=== PATIENT | female | born 1950 | race Caucasian/White ===

== ENCOUNTER → 2017-11-05 | Outpatient (CLI) | payer MEDICARE, OTHER ==
--- NOTE | 2017-11-05 14:37 | BD ---
EXAMINATION TYPE: MG DEXA axial skeleton. DATE OF EXAM: 11/05/2017 COMPARISON: NONE CLINICAL HISTORY: 67 YR OLD FEMALE: ICD-10 CODE: E55.9 UNSPEC. VITAMIN D DEFICIENCY Height: 64 Weight: 237 FRAX RISK QUESTIONS: Alcohol (3 or more units per day): NO Family History (Parent hip fracture): NO FX Glucocorticoids (More than 3mos): NO (Ex: prednisone, prednisolone, methylprednisolone, dexamethasone, and hydrocortisone). History of Fracture in Adulthood: NO Secondary Osteoporosis: NO 1. Type 1 Diabetes: NO 2. Hyperthyroidism: NO 3. Menopause before 45: NO 4. Malnutrition: NO 5. Chronic liver disease: NO Rheumatoid Arthritis: NO Current Tobacco Use: NO RISK FACTORS HISTORY OF: Family History of Osteoporosis: YES HER MOTHER, NO FX Active: YES Diet low in dairy products/other sources of calcium: NO Postmenopausal woman: 51 YRS Hyperparathyroidism: NO Adrenal Insufficiency: NO MEDICATIONS: Additional Medications: BP MEDS, VIT D Additional History: NONE TO NOTE EXAM MEASUREMENTS: Bone mineral densitometry was performed using the M_SOLUTION System. Bone mineral density as measured about the Lumbar spine is: ----- L1-L4(G/cm2): 1.244 T Score Values are as follows: ----- L1: -0.1 ----- L2: 0.0 ----- L3: 0.7 ----- L4: 1.2 ----- L1-L4: 0.5 Bone mineral density FIRST BONE DENSITY TEST WITH [facility] Bone mineral density about the R hip (g/cm2): 1.017 Bone mineral density about the L hip (g/cm2): 1.060 T Score values are as follows: -----R Neck: -1.2 -----L Neck: -1.2 -----R Total: 0.1 -----L Total: 0.4 FRAX%'S: THERE IS A 7.7% CHANCE OF A MAJOR OSTEOPOROTIC FX AND A 0.7% FOR A HIP FX....PROBABILITY OF FX IN 10 YRS TIME IMPRESSION: Osteopenia (T Score between -2.5 and -1 as noted by T score values There is slightly increased risk of fracture and the patient may be considered for treatment. Re-Screen 2-5 years. NOTE: T-SCORE=SD OF THE YOUNG ADULT MEAN.
== END | disposition home or self-care (01) ==
LOC: RADBDWWP 10:28
PROVIDERS: ATTEND Family Medicine
DX: M85.80 Other specified disorders of bone density and structure, unspecified site (principal); E55.9 Vitamin D deficiency, unspecified
CPT/HCPCS: 77080

== ENCOUNTER → 2017-11-26 | Outpatient (CLI) | payer MEDICARE, OTHER ==
--- NOTE | 2017-11-27 09:24 | MM ---
Reason for exam: screening (asymptomatic). Last mammogram was performed 1 year and 9 months ago. History: Patient is postmenopausal. Benign excisional biopsy of the right breast. Physical Findings: A clinical breast exam by your physician is recommended on an annual basis and results should be correlated with mammographic findings. MG 3D Screening Mammo W/Cad Bilateral CC and MLO view(s) were taken. Prior study comparison: February 21, 2016, bilateral MG 3d screening mammo w/cad. November 29, 2007, bilateral screening mammogram w/CAD. The breast tissue is almost entirely fat. There is no discrete abnormality. No significant changes when compared with prior studies. ASSESSMENT: Negative, BI-RAD 1 RECOMMENDATION: Routine screening mammogram of both breasts in 1 year.
== END | disposition home or self-care (01) ==
LOC: RADMAMWWP 10:17
PROVIDERS: ATTEND Family Medicine
DX: Z12.31 Encounter for screening mammogram for malignant neoplasm of breast (principal)
CPT/HCPCS: 77063; 77067

== ENCOUNTER → 2019-05-25 | Outpatient (CLI) | payer MEDICARE, OTHER ==
--- NOTE | 2019-05-26 11:58 | MM ---
Reason for exam: screening (asymptomatic). Last mammogram was performed 1 year and 6 months ago. History: Patient is postmenopausal. Benign excisional biopsy of the right breast. Physical Findings: A clinical breast exam by your physician is recommended on an annual basis and results should be correlated with mammographic findings. MG 3D Screening Mammo W/Cad Bilateral CC and MLO view(s) were taken. Prior study comparison: November 26, 2017, bilateral MG 3d screening mammo w/cad. February 21, 2016, bilateral MG 3d screening mammo w/cad. There are scattered fibroglandular densities. Benign appearing calcifications in the right breast. ASSESSMENT: Benign, BI-RAD 2 RECOMMENDATION: Routine screening mammogram of both breasts in 1 year.
== END | disposition home or self-care (01) ==
LOC: RADMAMWWP 08:10
PROVIDERS: ATTEND Family Medicine
DX: Z12.31 Encounter for screening mammogram for malignant neoplasm of breast (principal)
CPT/HCPCS: 77063; 77067

== ENCOUNTER → 2019-11-07 | Outpatient (CLI) | payer MEDICARE, OTHER ==
--- NOTE | 2019-11-07 10:57 | BD ---
EXAMINATION TYPE: Axial Bone Density DATE OF EXAM: 11/07/2019 COMPARISON: NONE CLINICAL HISTORY: Height: 64 Weight: 241.1 FRAX RISK QUESTIONS: Alcohol (3 or more units per day): no Family History (Parent hip fracture): no Glucocorticoids (More than 3mos): no (Ex: prednisone, prednisolone, methylprednisolone, dexamethasone, and hydrocortisone). History of Fracture in Adulthood: no Secondary Osteoporosis: 1. Type 1 Diabetes: no 2. Hyperthyroidism: no 3. Menopause before 45: no 4. Malnutrition: no 5. Chronic liver disease: no Rheumatoid Arthritis: no Current Tobacco Use: no RISK FACTORS HISTORY OF: Family History of Osteoporosis: yes Active: yes Diet low in dairy products/other sources of calcium: no Postmenopausal woman: age 51 MEDICATIONS: vit d, blood pressure, Additional History: EXAM MEASUREMENTS: Bone mineral densitometry was performed using the [employer]ongo System. Bone mineral density as measured about the Lumbar spine is: ----- L1-L4(G/cm2): 1.356 T Score Values are as follows: ----- L2: 1.1 ----- L3: 2.2 ----- L4: 1.3 ----- L1-L4: 1.5 Bone mineral density has: increased 8.8 % since study of: 11.05.2017 Bone mineral density about the R hip (g/cm2): 0.802 Bone mineral density about the L hip (g/cm2): 0.914 T Score values are as follows: -----R Neck: -1.7 -----L Neck: -0.9 -----R Total: -0.3 -----L Total: 0.4 Bone mineral density has: decreased -2.6 % since study of: 11.05.2017 IMPRESSION: No evidence for osteoporosis or osteopenia NOTE: T-SCORE=SD OF THE YOUNG ADULT MEAN.
== END | disposition home or self-care (01) ==
LOC: RADBDWWP 09:27
PROVIDERS: ATTEND Family Medicine
DX: M89.9 Disorder of bone, unspecified (principal)
CPT/HCPCS: 77080

== ENCOUNTER 2019-12-30 07:59 | Day surgery (SDC) | payer MEDICARE, OTHER ==
[2019-12-29 13:05] VITALS: BMI 38.7
[2019-12-30 08:32] VITALS: TEMP 98.3
[2019-12-30 09:28] VITALS: RESP 18
[2019-12-30 09:43] VITALS: BP 123/78; PULSE 67
== END 2019-12-30 10:02 | disposition home or self-care (01) ==
LOC: ORWHC2ENDO 07:59
PROVIDERS: ATTEND Internal Medicine Gastroenterology
DX: Z12.11 Encounter for screening for malignant neoplasm of colon (principal); D12.5 Benign neoplasm of sigmoid colon; K57.30 Diverticulosis of large intestine without perforation or abscess without bleeding; I10 Essential (primary) hypertension; Z88.2 Allergy status to sulfonamides; Z79.899 Other long term (current) drug therapy
CPT/HCPCS: 88305; 45385; J2704

== ENCOUNTER → 2020-05-17 | Outpatient (CLI) | payer MEDICARE, OTHER ==
[2020-05-17 10:52] LABS: Basophils % (A) 1 %; Eosinophils # (A) 0.2 k/uL (0-0.7); Eosinophils % (A) 4 %; HGB 12.1 gm/dL (11.4-16.0); Lymphocytes % (A) 16 %; MCH 28.3 pg (25.0-35.0); MCV 88.4 fL (80.0-100.0); Mean Platelet Volume 7.6; Monocytes # (A) 0.4 k/uL (0-1.0); Monocytes % (A) 7 %; Neutrophils # (A) 4.3 k/uL (1.3-7.7); Neutrophils % (A) 71 %; Platelet Count 215 k/uL (150-450); RBC 4.29 m/uL (3.80-5.40); RDW 14.7 % (11.5-15.5); WBC 6.1 k/uL (3.8-10.6)
[2020-05-17 17:02] LABS: African American GFR (CKD) 87.2 (60.0-200.0); Albumin/Globulin Ratio 1.67 (1.60-3.17); BUN/Creat Ratio 32.5 Ratio (12.00-20.00); C Reactive Protein 1.4 mg/dL (0.0-0.8); Calcium 9.3 mg/dL (8.7-10.3); Globulin 2.4 g/dL (1.6-3.3); Non-African American GFR(CKD) 75.2 (60.0-200.0); Total Bilirubin 0.8 mg/dL (0.3-1.2); Total Protein 6.4 g/dL (6.2-8.2)
[2020-05-17 17:09] LABS: Erythrocyte Sedimentation Rate 43 mm/Hr (0-30)
== END | disposition home or self-care (01) ==
LOC: LABWHC1 09:45
PROVIDERS: ATTEND Family Medicine
DX: L97.822 Non-pressure chronic ulcer of other part of left lower leg with fat layer exposed (principal)
CPT/HCPCS: 36415; 80053; 84134; 85025; 85652; 86140

== ENCOUNTER → 2020-05-23 | Outpatient (CLI) | payer MEDICARE, OTHER ==
--- NOTE | 2020-05-23 16:24 | US ---
LOWER EXTREMITY VENOUS INSUFFICIENCY CLINICAL HISTORY: L97.822 CHRONIC ULCER. Bilateral LE swelling, edema, and cellulitis. Hematoma afte r falling and landing on left leg; left anterior lower leg ulcer. Varicose veins are noted bilaterall y SIDE PERFORMED: Bilateral 1) Color flow is present and patency is documented in the following vessels. No DVT or SVT is noted . Common Femoral Vein Deep Femoral Vein Femoral Vein Popliteal Vein Proximal Calf Veins Greater Saph Vein Upper Small Saph Vein 2) There is venous reflux noted at the following venous levels: Right GSV mid and distally. Edema c hannels are noted bilateral lower extremities. Venous reflux is noted Left proximal, mid, and distal GSV 3) Incompetent perforators are not indicated. IMPRESSION: 1. Right Mid and distal Greater saphenous venous reflux. 2. Venous reflux left proximal mid to distal greater saphenous vein.
== END | disposition home or self-care (01) ==
LOC: RADUSWWP 13:39
PROVIDERS: ATTEND Family Medicine
DX: I87.2 Venous insufficiency (chronic) (peripheral) (principal); L97.822 Non-pressure chronic ulcer of other part of left lower leg with fat layer exposed; Z79.899 Other long term (current) drug therapy
CPT/HCPCS: 93922; 93970

== ENCOUNTER → 2021-09-11 | Outpatient (CLI) | payer MEDICARE, OTHER ==
[2021-09-11 15:19] LABS: Basophils % (A) 0 %; Eosinophils # (A) 0.2 k/uL (0-0.7); Eosinophils % (A) 3 %; HCT 41.6 % (34.0-46.0); Lymphocytes # (A) 1.5 k/uL (1.0-4.8); Lymphocytes % (A) 25 %; MCH 30.2 pg (25.0-35.0); MCHC 33.7 g/dL (31.0-37.0); MCV 89.7 fL (80.0-100.0); Mean Platelet Volume 8.5; Monocytes # (A) 0.3 k/uL (0-1.0); Monocytes % (A) 6 %; Neutrophils # (A) 3.8 k/uL (1.3-7.7); Neutrophils % (A) 64 %; Platelet Count 131 k/uL (150-450); RBC 4.64 m/uL (3.80-5.40); RDW 13.6 % (11.5-15.5); WBC 5.8 k/uL (3.8-10.6)
[2021-09-11 15:27] LABS: Potassium 3.8 mmol/L (3.5-5.1)
[2021-09-11 15:33] LABS: INR 0.9 (<1.2); Partial Thromboplastin Time 25.4 sec (22.0-30.0); Prothrombin Time 10.2 sec (9.0-12.0)
== END | disposition home or self-care (01) ==
LOC: LABPAT 14:09
PROVIDERS: ATTEND Orthopaedic Surgery
DX: Z01.812 Encounter for preprocedural laboratory examination (principal); M17.11 Unilateral primary osteoarthritis, right knee
CPT/HCPCS: 80051; 85025; 85610; 85730; 87070

== ENCOUNTER → 2021-09-18 | Outpatient (CLI) | payer MEDICARE, OTHER ==
--- NOTE | 2021-09-18 12:37 | NM ---
EXAMINATION TYPE: NM stress cardiolite complete DATE OF EXAM: 09/18/2021 COMPARISON: NONE HISTORY: Chest pain TECHNIQUE: After the intravenous administration of 9.5 mCi Tc 99m Sestamibi - Rest images obtained 8 0 minutes post injection. The patient exercised using a AUGIE protocol and 1 minute prior to peak e xercise was injected with 25.6 mCi Tc 99m Sestamibi - Stress images obtained 15 minutes post injectio n. FINDINGS: Targeted heart rate was achieved during performance of the study. Review of stress and rest SPECT juan ges demonstrates fixed defect involving the anterior septal wall. Fixed defect involving the apex of the wall. Could not exclude a small area of stress-induced reversible ischemia reduced wall motion ac tivity.. Gated analysis shows normal wall motion with an estimated left ventricular ejection fractio n of 27 %. Report called to referring clinician 12:33 PM and 09/18/2021. IMPRESSION: 1. Sizable area of fixed defect involving the apex and anteroseptal wall. Corresponding wall motion a bnormality with ejection fraction of only 27%. Could not exclude a small area of stress-induced rever sible ischemia within the apex of the myocardium correlate clinically.
--- NOTE | 2021-09-19 14:42 | EST ---
EXERCISE STRESS AGE: 70 SEX: Fe HT: 5'6" WT: 242 lbs. PROTOCOL: Cardiolite [place] STAGE: 1 DURATION OF EXERCISE: 3:00 HEART RATE REST: 71 BLOOD PRESSURE REST: 09447 MAXIMUM HEART RATE ACHIEVED: 153 MAXIMUM BLOOD PRESSURE: 199/109 85% MPHR: 128 100% MPHR: 150 METs 4.6 INDICATIONS: Pre-surgical clearance. RESULTS: Baseline EKG revealed a sinus mechanism, left bundle branch block pattern with repolarization abnormality. Patient walked for 3 minutes, achieved a maximal heart rate of 153 beats per minute. She developed fatigue and shortness of breath. She did not have any angina. Exercise capacity was limited. EKG remained inconclusive. There was no arrhythmia. By EKG criteria, this is an inconclusive stress test with limited exercise capacity. If myocardial ischemia is suspected, patient should have a Lexiscan stress test. This test is inconclusive and needs to be changed to a Lexiscan stress test and repeated if ischemia is a concern prior to elective surgery. MMODL / IJN: [id number] /
== END | disposition home or self-care (01) ==
LOC: RADNMMAIN 09:13
PROVIDERS: ATTEND Family Medicine
DX: I51.89 Other ill-defined heart diseases (principal)
CPT/HCPCS: 93017; 78452; A9500

== ENCOUNTER 2021-09-26 06:28 | Day surgery (SDC) | payer MEDICARE, OTHER ==
[2021-09-23 12:02] VITALS: BMI 39.0
[~2021-09-26 06:28] MED LIST: ALPRAZolam 0.25 MG TAB PO PRN; ALPRAZolam 0.5 MG TAB PO PRN; ASPIRIN 325 MG TAB PO STA; ATORVASTATIN 80 MG TAB PO STA; HEPARIN SODIUM,PORCINE 10,000 UNIT in SODIUM CHLORIDE 0.9% 1,000 ML IRRIGATION PRN; HEPARIN SODIUM,PORCINE 2,500 UNIT in SODIUM CHLORIDE 0.9% 250 ML IRRIGATION PRN; NITROGLYCERIN SL TABS 0.4 MG TAB SUBLINGUAL PRN; SODIUM CHLORIDE 0.9% 1,000 ML in EMPTY BAG 1 BAG IV SCH
[2021-09-26] MEDS ORDERED: LIDOCAINE 1% INJ 10MG/ML (20 ML MDV) ONE (07:17)
[2021-09-26] MEDS ORDERED: VERAPAMIL 2.5 MG/ML 2 ML AMP ONE (07:17)
[2021-09-26] MEDS ORDERED: HEPARIN SODIUM 1,000 UN/ML (10ML VL) ONE (07:17)
[2021-09-26 07:18] VITALS: RESP 16; TEMP 98
[2021-09-26] MEDS ORDERED: fentaNYL (PF) 50 MCG/ML 5 ML AMP IV ONE (07:54)
[2021-09-26] MEDS ORDERED: LIDOCAINE 1% INJ 10MG/ML (20 ML MDV) SQ ONE (07:56)
[2021-09-26] MEDS ORDERED: MIDAZOLAM 2 MG/2 ML VIAL IV ONE (07:57)
[2021-09-26] MEDS ORDERED: VERAPAMIL SYRINGE (5 MG/10 ML) INTRAARTER ONE (08:01)
[2021-09-26] MEDS ORDERED: HEPARIN SODIUM 1,000 UN/ML (10ML VL) IV ONE (08:04)
[2021-09-26] MEDS ORDERED: IOPAMIDOL-370 125ML BTL INJ ONE (08:13)
[2021-09-26] MEDS ORDERED: RX INFO: IV CONTRAST WAS GIVEN 1 EACH MISC MISCELLANE PRN (08:25)
[2021-09-26] MEDS ORDERED: SODIUM CHLORIDE 0.9% 1,000 ML IV SCH (08:30)
[2021-09-26] MEDS ORDERED: NON FORMULARY DRUG (Vit C/E/Zn/Coppr/Lutein/Zeaxan [Preservision Areds 2 Softgel] 1 EACH C PO SCH (09:00)
[2021-09-26] MEDS ORDERED: lisinopriL 5 MG TAB PO SCH (09:00)
[2021-09-26] MEDS ORDERED: NON FORMULARY DRUG (Aspirin [Adult Low Dose Aspirin Ec] 81 MG Tablet) PO SCH (09:00)
--- NOTE | 2021-09-26 09:40 | CC ---
CARDIAC CATHETERIZATION REPORT Mrs. Nicholson is a 70-year-old female with known history of hypertension, who was being evaluated to undergo orthopedic surgery and was found to have a left bundle branch block. Subsequently underwent myocardial perfusion imaging that revealed evidence of severe cardiomyopathy and a questionable myocardial infarction. In view of that, recommendation was made regarding cardiac catheterization. The procedure as well as the risks and the complications were discussed with the patient who is in full understanding and agreement. PROCEDURE DESCRIPTION: Patient was brought to skill labor in a fasting semisedated state after receiving fentanyl and Benadryl and achieving moderate conscious sedated state. Using Xylocaine anesthesia and Seldinger technique, a 6-Brazilian sheath was introduced in the right radial artery. Selective right and left coronary angiography were performed using 5- Brazilian 3.5 bend right and left Vini catheters. Multiple views of the coronary artery including hemiaxial views were obtained. Following that, a 5-Brazilian tight pigtail catheter was introduced into the left ventricle and a 30-degree BRANNON view of the left ventricle was obtained. Following that, catheter and sheath were removed. Hemostasis was obtained with deployment of a TR band. There was no immediate complication. Patient was returned to the room in stable condition. Of note, the patient received 5000 units of intravenous heparin as well as intraarterial verapamil. FINDINGS: LEFT MAIN: This is a large-sized vessel bifurcating into left circumflex, left anterior descending artery, left main artery has no evidence of high-grade stenosis. LEFT ANTERIOR DESCENDING ARTERY: This vessel gives rise to a moderately sized diagonal branch proximally. The LAD tapers down distal third. It has no evidence of high-grade stenosis. LEFT CIRCUMFLEX: This is a large nondominant vessel giving rise to a large obtuse marginal branch. The left circumflex as well as branches have no evidence of obstructive coronary artery disease. RIGHT CORONARY ARTERY: This is a large dominant vessel bifurcating into PDA and posterolateral segment and branches. The right coronary artery as well as branches have no evidence of obstructive coronary artery disease. LEFT VENTRICULOGRAM: The left ventriculogram was performed in 30-degree BRANNON view and revealed evidence of global hypokinesis with ejection fraction 20-25 percent. There was no significant mitral regurgitation. HEMODYNAMICS: There was no gradient across the aortic valve. The left ventricular end-diastolic pressure was 16-20 mmHg. CONCLUSION: 1. Normal coronary arteries. 2. Severely impaired left ventricular systolic function. RECOMMENDATIONS: In view of findings and anatomy, I recommend continued medical therapy with aggressive coronary risk factor modifications that have been initiated. The patient will be initiated on a beta marlee in addition to the DEVI inhibitor and will be subsequently evaluated for possible need for an ICD Bi-V implant. Those findings and recommendations were discussed with the patient and her family, and they are in full understanding and agreement. Duration of sedation is 20 minutes. REG / MARQUITAN: [id number] /
--- NOTE | 2021-09-26 09:46 | LTR ---
DATE OF SERVICE: 09/26/[address] Mora: I had the pleasure of performing cardiac catheterization on Mrs. Nicholson at [facility] on September 26 and a full copy of procedure note will be forwarded to you. In brief, she was found to have no evidence of obstructive coronary artery disease with evidence of severe cardiomyopathy consistent with nonischemic cardiomyopathy and based on those findings, I recommend continue with optimizing her medical regimen and she will be evaluated for the possible need to undergo ICD Bi-V implant. I will keep you updated on her progress. Thank you again for me allowing me the pleasure of participating in her care. Please feel free to call for any questions. Sincerely yours, MMAPOORVAL / IJN: [id number] /
[2021-09-26 14:01] VITALS: BP 127/60; PULSE 50
[2021-09-26] MEDS ORDERED: carvediloL 6.25 MG TAB PO SCH (17:30)
[2021-09-27] MEDS ORDERED: NON FORMULARY DRUG (Ergocalciferol 50,000 UNIT Cap) PO SCH (08:26)
== END 2021-09-26 13:02 | disposition home or self-care (01) ==
LOC: CATHCVL 06:28
PROVIDERS: ATTEND Internal Medicine Interventional Cardiology
DX: I25.10 Atherosclerotic heart disease of native coronary artery without angina pectoris (principal); I44.7 Left bundle-branch block, unspecified; Z20.822 Contact with and (suspected) exposure to COVID-19; I10 Essential (primary) hypertension; I42.9 Cardiomyopathy, unspecified; Z72.0 Tobacco use; Z88.2 Allergy status to sulfonamides; R94.39 Abnormal result of other cardiovascular function study; I34.0 Nonrheumatic mitral (valve) insufficiency; Z79.82 Long term (current) use of aspirin; Z79.899 Other long term (current) drug therapy
CPT/HCPCS: 93458; 87635; C1894; C1769; J2250; J2001; J3010; J1644; Q9967

== ENCOUNTER → 2022-01-28 | Outpatient (CLI) | payer MEDICARE, OTHER ==
[2022-01-28 23:31] LABS: Anion Gap 12.5 mmol/L (10.00-18.00); Blood Urea Nitrogen 21.8 mg/dL (9.0-27.0); Carbon Dioxide 21.5 mmol/L (20.0-27.5); Non-African American GFR(CKD) 74.2 (60.0-200.0); Potassium 4.3 mmol/L (3.5-5.5)
[2022-01-28 23:37] LABS: HCT 42.5 % (37.2-46.3); HGB 13.7 g/dL (12.0-15.0); MCH 29.5 pg (27.0-32.0); MCHC 32.2 g/dL (32.0-37.0); MCV 91.4 fL (80.0-97.0); Mean Platelet Volume 11.1 fL (9.5-12.2); NRBC Per 100 WBC 0 /100 WBCS (0.0-0.0); Platelet Count 136 X 10*3/uL (140-440); RBC 4.65 X 10*6/uL (4.10-5.20); RDW 13.8 % (11.5-14.5); WBC 5.69 X 10*3/uL (4.50-10.00)
== END | disposition home or self-care (01) ==
LOC: LABPAT 14:24
PROVIDERS: ATTEND Internal Medicine Clinical Cardiac Electrophysiology
DX: Z01.812 Encounter for preprocedural laboratory examination (principal); Z20.822 Contact with and (suspected) exposure to COVID-19; I42.8 Other cardiomyopathies
CPT/HCPCS: 80051; 82565; 84520; 85027; 36415; U0003; C9803; U0005

== ENCOUNTER 2022-01-30 05:57 | Day surgery (SDC) | payer MEDICARE, OTHER ==
[2022-01-29 11:08] VITALS: BMI 38.7
[~2022-01-30 05:57] MED LIST changes: -ALPRAZolam 0.25 MG TAB PO PRN; -ALPRAZolam 0.5 MG TAB PO PRN; -ASPIRIN 325 MG TAB PO STA; -ATORVASTATIN 80 MG TAB PO STA; -HEPARIN SODIUM,PORCINE 10,000 UNIT in SODIUM CHLORIDE 0.9% 1,000 ML IRRIGATION PRN; -HEPARIN SODIUM,PORCINE 2,500 UNIT in SODIUM CHLORIDE 0.9% 250 ML IRRIGATION PRN; +LACTATED RINGERS 1,000 ML IV SCH; +LIDOCAINE 1% (10MG/ML) FOR IV START INTRADERMA PRN; -NITROGLYCERIN SL TABS 0.4 MG TAB SUBLINGUAL PRN; +SODIUM CHLORIDE 0.9% 1,000 ML IV SCH; -SODIUM CHLORIDE 0.9% 1,000 ML in EMPTY BAG 1 BAG IV SCH
[2022-01-30] MEDS ORDERED: SODIUM CHLORIDE 0.9% 1,000 ML IV ONE (06:16)
[2022-01-30] MEDS ORDERED: ceFAZolin 1 GM in SODIUM CHLORIDE 0.9% IRRIG BTL 250 ML IRRIGATION PRN (07:00)
[2022-01-30] MEDS ORDERED: fentaNYL (PF) 50 MCG/ML 2 ML AMP ONE (07:20)
[2022-01-30] MEDS ORDERED: MIDAZOLAM 2 MG/2 ML VIAL ONE (07:20)
[2022-01-30] MEDS ORDERED: LIDOCAINE 1% INJ 10MG/ML (20 ML MDV) ONE (07:47)
[2022-01-30] MEDS: IOPAMIDOL-250 50ML BTL IV ONE ×2 (07:51→08:55)
[2022-01-30] MEDS ORDERED: LIDOCAINE 1% INJ 10MG/ML (20 ML MDV) SQ ONE ×2 (08:11→08:42)
[2022-01-30] MEDS ORDERED: FUROSEMIDE 20 MG TAB PO PRN (10:21)
[2022-01-30] MEDS ORDERED: ACETAMINOPHEN TAB 325 MG TAB PO PRN (10:22)
--- NOTE | 2022-01-30 10:53 | P.EPPROC ---
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 Written informed consent was obtained prior to the procedure. Conscious sedation provided by anesthesia team IV antibiotics administered. Local anesthesia administered. A 4 cm incision made in the pectoral area. Subfascial pocket made. Venous access obtained Venous sheaths placed. Leads placed in the right heart Atrial lead position the right atrial appendage. [facility] medical tendril 2088 TC P waves initially greater than 2 mV, pacing threshold 0.5 V at 0.5 ms and pacing impedance of 640 ohms 10 V test negative RV lead position in the RV apex. [facility] medical update sure LDA 210Q, 65 cm in length R waves initially greater than 6 mV, pacing threshold 0.4 V at 0.5 ms pacing impedance of 600 ohms 10 V test negative LV lead positioned in the anterior LV vein. [facility] [facility] medical model #[id number] Distal pole pacing resulted in diaphragmatic stimulation Pacing from. 3 and 4 in various combinations did not result in diaphragmatic stimulation Pacing threshold 1.5 V at 0.5 ms with a pacing impedance of 840 ohms, N3-M2 High-voltage impedance 69 ohms Biventricular ICD device connected to the leads and placed in the subfascial pocket Antibiotic envelope used Patient tolerance the procedure well without acute complications. Device was programmed according to [facility] programming for tachycardia therapies For bradycardia therapies with LV pacing LV offset of 40 ms Synch AV
[2022-01-30 10:58] VITALS: RESP 18
[2022-01-30] MEDS ORDERED: ACETAMINOPHEN IV (For NPO) 1,000 MG in EMPTY BAG 1 BAG IVPB ONE (12:00)
--- NOTE | 2022-01-30 13:33 | XR ---
EXAMINATION TYPE: XR chest 1V portable DATE OF EXAM: 01/30/2022 COMPARISON: NONE HISTORY: Lead placement check TECHNIQUE: Single frontal view of the chest is obtained. FINDINGS: There is no focal air space opacity, pleural effusion, or pneumothorax seen. The cardiac silhouette size is within normal limits. The osseous structures are intact. There is a cardiac device with approximately 3 leads. May represent biventricular leads with addition al lead overlying the right atrium correlate clinically for confirmation. No overt failure. Heart siz e normal. IMPRESSION: 1. No pneumothorax. Cardiac device placement which appears to be a biventricular correlate clinically for confirmation. 2. Mild prominence of fullness in the right hilum may be related to prominent pulmonary artery. Short -term follow-up CT chest could be obtained.
[2022-01-30 14:10] VITALS: BP 115/60; PULSE 74; TEMP 97.6
--- NOTE | 2022-01-30 14:51 | P.PRLE ---
RE: Kerri Nicholson Dear Dorene Manning underwent a biventricular ICD for management of congestive heart failure and severe nonischemic cardiopathy She did very well during the procedure She will continue to see you in Dr. Rosales as before and her medications for heart failure remain unchanged this point Thank you for entrusting me with the care of the patient Warm regards Sincerely Kana Rizzo
[2022-01-30] MEDS ORDERED: carvediloL 6.25 MG TAB PO SCH (17:30)
--- NOTE | 2022-01-30 19:57 | P.DS ---
Providers Attending physician: Kana Rizzo Primary care physician: [facility] Hospital Course: Patient stable from a cardiac vascular standpoint Today she underwent a Bi V ICD implantation for nonischemic cardio myopathy and left bundle branch block pattern and congestive heart failure She did very well was stopped immediately line IV ICD is functioning normally IV antibiotics a complete She will go home today and follow-up in the device clinic in a week Heart failure medications remain unchanged Plan - Discharge Summary Discharge Rx Participant: No New Discharge Prescriptions: Continue Ergocalciferol [Vitamin D2 (DRISDOL)] 1.25 units PO FR carvediloL [Coreg] 6.25 mg PO BID #180 tablet Furosemide [Lasix] 20 mg PO DAILY PRN PRN Reason: Edema Acetaminophen [Tylenol Arthritis] 650 mg PO Q6H PRN PRN Reason: Pain Sacubitril/Valsartan [Entresto 24 mg-26 mg Tablet] 2 each PO BID Spironolactone [Aldactone] 25 mg PO DAILY Discharge Medication List Ergocalciferol [Vitamin D2 (DRISDOL)] 1.25 units PO FR 08/11/16 [History] carvediloL [Coreg] 6.25 mg PO BID #180 tablet 09/26/21 [Rx] Acetaminophen [Tylenol Arthritis] 650 mg PO Q6H PRN 01/29/22 [History] Furosemide [Lasix] 20 mg PO DAILY PRN 01/29/22 [History] Sacubitril/Valsartan [Entresto 24 mg-26 mg Tablet] 2 each PO BID 01/29/22 [History] Spironolactone [Aldactone] 25 mg PO DAILY 01/29/22 [History] Follow up Appointment(s)/Referral(s): Megan Rosales MD [STAFF PHYSICIAN] - 02/05/22 1:00 pm (Appointment made with Device Clinic at 1:00pm and follow up with at 1:15pm.) Activity/Diet/Wound Care/Special Instructions: PATIENT EDUCATION MATERIAL Instructions following a heart rhythm device implant. 1. Keep dressing DRY for 5 DAYS. You may cover the area with Saran or Cling Wrap, prior to a shower. 2. The dressing will be removed in the Device Clinic at [facility]. Absorbable sutures were used to close the wound. 3. Avoid raising the left arm above the shoulder level. 4 week restriction 4. Avoid arm movements, like backscratching, rubbing the head, or pulling on a cord. 4 weeks restriction 5. Gentle range of motion movements of the shoulder, closest to the incision should be performed to avoid a frozen shoulder. (Pendulum exercises of the shoulder) 6. The opposite arm may be used freely. 7. Avoid driving for 7 days. 8. Avoid activities such as golfing, swimming, weed whacking, lifting more than 10 pounds weight, bowling, gymnastics and weight training/lifting. (6 weeks restriction) 9. Activities such as wood chopping with an axe, pull-ups in the gymnasium, power lifting, arc-welding, being close to home induction cooktops will always be a problem. 10. Arm sling is only a reminder not to raise the arm above the head. You do not need to keep the arm completely immobilized. Your free to move the arm and use it and for normal activities. In case of any problems, please call [facility], [place], @ [phone], Attention: Device Clinic Device clinic follow-up in 5 days Follow-up with primary digital advertising specialist in 2-3 months Discharge Disposition: HOME SELF-CARE
[2022-01-30] MEDS ORDERED: SACUBITRIL/VALSARTAN 24 MG-26 MG TABLET PO SCH (21:00)
[2022-01-31] MEDS ORDERED: SPIRONOLACTONE 25 MG TAB PO SCH (09:00)
== END 2022-01-30 17:55 | disposition home or self-care (01) ==
LOC: CATHEP 05:57 → 6NMEDSUR 10:37 → CATHEP 17:55
PROVIDERS: ATTEND Internal Medicine Clinical Cardiac Electrophysiology
DX: I42.8 Other cardiomyopathies (principal); I11.0 Hypertensive heart disease with heart failure; I50.22 Chronic systolic (congestive) heart failure; I44.7 Left bundle-branch block, unspecified; I08.3 Combined rheumatic disorders of mitral, aortic and tricuspid valves; Z79.899 Other long term (current) drug therapy; Z87.891 Personal history of nicotine dependence; Z88.2 Allergy status to sulfonamides; Z91.09 Other allergy status, other than to drugs and biological substances; Z82.49 Family history of ischemic heart disease and other diseases of the circulatory system
CPT/HCPCS: 33225; 33249; 71045; C1769 ×5; C1882; C1892 ×2; C1730; C1887; C1898; C1900; C1777; J2250; J0690; J2001; J3010; Q9966

== ENCOUNTER → 2022-04-10 | Outpatient (CLI) | payer MEDICARE, OTHER ==
[2022-04-10 10:35] LABS: Anion Gap 11.4 mmol/L (10.00-18.00); BUN/Creat Ratio 33.29 Ratio (12.00-20.00); Blood Urea Nitrogen 23.3 mg/dL (9.0-27.0); Calcium 9.3 mg/dL (8.7-10.3); Carbon Dioxide 23.6 mmol/L (20.0-27.5); Non-African American GFR(CKD) 87.2 (60.0-200.0); Potassium 4.4 mmol/L (3.5-5.5)
[2022-04-10 11:02] LABS: INR 0.93 (0.90-1.11); Prothrombin Time 10.5 sec (9.9-11.9)
[2022-04-10 11:11] LABS: Basophils # (A) 0.02 X 10*3/uL (0.00-0.10); Basophils % (A) 0.4 %; Eosinophils # (A) 0.23 X 10*3/uL (0.04-0.35); Eosinophils % (A) 4.9 %; HCT 40.5 % (37.2-46.3); HGB 12.9 g/dL (12.0-15.0); Immature Grans, Automated 0.2 %; Lymphocytes # (A) 1.02 X 10*3/uL (0.90-5.00); Lymphocytes % (A) 21.8 %; MCH 28.9 pg (27.0-32.0); MCHC 31.9 g/dL (32.0-37.0); MCV 90.8 fL (80.0-97.0); Mean Platelet Volume 11.5 fL (9.5-12.2); Monocytes # (A) 0.42 X 10*3/uL (0.20-1.00); NRBC Per 100 WBC 0 /100 WBCS (0.0-0.0); Neutrophils # (A) 2.97 X 10*3/uL (1.80-7.70); Neutrophils % (A) 63.7 %; Platelet Count 116 X 10*3/uL (140-440); RBC 4.46 X 10*6/uL (4.10-5.20); RDW 13.4 % (11.5-14.5); WBC 4.67 X 10*3/uL (4.50-10.00)
== END | disposition home or self-care (01) ==
LOC: LABPAT 07:24
PROVIDERS: ATTEND Orthopaedic Surgery
DX: Z01.812 Encounter for preprocedural laboratory examination (principal); Z22.322 Carrier or suspected carrier of Methicillin resistant Staphylococcus aureus; M17.11 Unilateral primary osteoarthritis, right knee
CPT/HCPCS: 36415; 80048; 85025; 85610; 87070

== ENCOUNTER 2022-04-28 09:09 | Day surgery (SDC) | payer MEDICARE, OTHER ==
[2022-04-22 15:58] VITALS: BMI 39.6
--- NOTE | 2022-04-27 11:36 | HP ---
HISTORY AND PHYSICAL DATE OF SURGERY: 04/28/2022 Kerri Nicholson is a 71-year-old patient who was seen with symptomatic right knee osteoarthritis. We discussed options for treatment. She elected to proceed with right total knee arthroplasty. Consent was obtained. Medical clearance was provided by Dr. Mora. Cardiac clearance was provided by Dr. Rosales. PAST MEDICAL HISTORY: Hypertension. PAST SURGICAL HISTORY: Breast biopsy, pacemaker insertion. DAILY MEDICATIONS: Hydrochlorothiazide, ibuprofen. ALLERGIES: SULFA, LODINE. SOCIAL HISTORY: She denies current tobacco use. PHYSICAL EVALUATION OF THE RIGHT KNEE: Range of motion is negative 3/4 to 110. Mild effusion. Tenderness, medial joint line. Crepitus, medial and patellofemoral compartments with range of motion. Pain with patellofemoral compression. Ligaments stable. Hip rotation without pain. Distal neurovascular exam intact. Right knee radiographs reveal severe osteoarthritic changes. IMPRESSION: 1. Right knee osteoarthritis. 2. Hypertension. PLAN: Right total knee arthroplasty. MMODL / IJN: [id number] /
[~2022-04-28 09:09] MED LIST changes: +ACETAMINOPHEN TAB 500 MG TAB PO PRN; +DEXAMETHASONE SOD PHOSPHATE 4 MG/ML 1 ML VIAL IV ONE; -LACTATED RINGERS 1,000 ML IV SCH; -LIDOCAINE 1% (10MG/ML) FOR IV START INTRADERMA PRN; +MELOXICAM 7.5 MG TAB PO PRN; +MIDAZOLAM 2 MG/2 ML VIAL IV PRN; +ONDANSETRON 4 MG/2 ML VIAL IVP ONE; -SODIUM CHLORIDE 0.9% 1,000 ML IV SCH; +TRANEXAMIC ACID IN NACL,ISO-OS 1,000 MG in SALINE 1 100ML.BAG IVPB PRN
[2022-04-28] MEDS: LACTATED RINGERS 1,000 ML IV SCH ×3 (10:15→22:33)
[2022-04-28] MEDS ORDERED: MIDAZOLAM 2 MG/2 ML VIAL IVP ONE (10:30)
[2022-04-28] MEDS ORDERED: TRANEXAMIC ACID IN NACL,ISO-OS 1,000 MG/100 ML BAG ONE (11:07)
[2022-04-28] MEDS ORDERED: MIDAZOLAM 2 MG/2 ML VIAL ONE (11:07)
[2022-04-28] MEDS ORDERED: PROPOFOL 10 MG/ML 20 ML VIAL IV ONE (11:07)
[2022-04-28] MEDS ORDERED: ONDANSETRON 4 MG/2 ML VIAL IVP PRN (12:55)
[2022-04-28] MEDS ORDERED: NALOXONE 0.4 MG/ML 1 ML VIAL IV PRN (12:55)
[2022-04-28] MEDS ORDERED: HYDROmorphone 0.5 MG/0.5 ML SYRINGE IVP PRN ×3 (12:55)
--- NOTE | 2022-04-28 12:55 | P.OP ---
Date of Procedure: 04/28/22 Preoperative Diagnosis: Right knee osteoarthritis Postoperative Diagnosis: Right knee osteoarthritis Procedure(s) Performed: Right total knee arthroplasty Implants: 1. Depuy attune size 6 narrow cruciate retaining cemented femur 2. Depuy attune size 6 fixed bearing cemented tibial baseplate 3. Depuy attune size 6 fixed bearing cruciate retaining 12 mm polyethylene tibial insert 4. Depuy attune 35 mm all polyethylene cemented patella Anesthesia: regional (Adductor canal catheter, Ipack block), spinal Surgeon: Boris Patel Chancery Clerk #1: Peter Marqeus Estimated Blood Loss (ml): 45 Pathology: other (Bone) Condition: stable Disposition: PACU Indications for Procedure: 71-year-old patient seen with symptomatic right knee osteoarthritis. After treatment options were discussed, she elected to proceed with right total knee arthroplasty. Operative Findings: See description of procedure Description of Procedure: Patient was taken to the operative suite after having an adductor canal catheter placed by the department of anesthesia. Patient underwent a spinal anesthetic by the department of anesthesia. Patient was given preoperative IV intake antibiotics and TXA. A well-padded tourniquet was placed about the right lower extremity. The lower extremity was then prepped and draped in the normal sterile orthopedic fashion. The extremity was elevated, a tourniquet was insufflated to 300. A standard anterior incision was made sharply through skin. Dissection was taken down through the subcutaneous soft tissues down to the extensor mechanism. A medial arthrotomy was performed, patella was everted and knee was flexed. There was advanced osteoarthritis noted. I introduced my distal intramedullary femoral drill. I then introduced the distal femoral cutting jig. Stu ATWOOD secured the cutting jig with 2 pins. I held retractors in position while Stu ATWOOD performed the distal femoral resection through the guide area we now removed her distal femoral cutting guide. We now placed our 4-in-1 femoral cutting block and positioned and it was secured with 2 pins by Stu ATWOOD while I held the block in position. The distal femoral finishing was now completed. A proximal tibial cutting guide was positioned. I held the guide in the appropriate position with both hands well Stu ATWOOD inserted stabilizing pins into the guide. Proximal tibial cut was made. We now placed a trial femoral component into position, along with an appropriate size tibial tray and insert. We now took the knee through range of motion and had full extension good flexion and good overall soft tissue balance noted. The patella was everted and stabilized with 2 towel clips held by Stu ATWOOD while I performed a flush with patellar quad tendon utilizing a fresh sawblade. We templated the patella, appropriate drill holes were made. An appropriate trial patella was positioned, knee was taken through full range of motion with the patella tracking very nicely. The trial patella was removed. Drill holes were made through the femoral component. All trial components were removed after marking off the appropriate rotation of the tibia. Retractors were now positioned along the proximal tibia. An appropriate keel punch was made with the appropriate size tibial guide by myself on Stu ATWOOD assisted by holding retractors. At this point appropriate size implants were chosen and opened. The joint was irrigated copiously with pulse lavage mechanical irrigation. The posterior capsule was infiltrated with local analgesic. The wound was irrigated with pulse lavage mechanical irrigation. We mixed antibiotic methylmethacrylate. We placed the knee into flexion. We placed multiple retractors assisted by Stu ATWOOD to expose the proximal tibia. Once the methyl methacrylate was ready, the tibial component was cemented into place removing any excess methylmethacrylate form by both myself and Stu ATWOOD. The femoral component was cemented into place removing the removing any excess methylmethacrylate performed by both myself and Stu ATWOOD. We then inserted the appropriate size polyethylene tibial insert. We made sure that it was locked into position. We took the knee into full extension, and then back in a flexion making sure we had removed any excess methylmethacrylate. The patellar component was then cemented down and secured with clamp. Excess methylmethacrylate removed. We kept the knee in full extension, patellar clamp in position until methylmethacrylate had hardened. Once it had hardened the patellar clamp was removed. The knee was taken through full range of motion. The patella tracked nicely. There was good soft tissue balancing. The tourniquet was now released. Additional hemostasis was achieved via electrocautery. A second gram of TXA was given. The wound again was irrigated with pulse lavage mechanical irrigation. The superficial soft tissues were infiltrated local analgesic. The extensor mechanism was repaired with Ethibond. We checked the repair with range of motion and it was stable. The subcutaneous soft tissues were repaired with Vicryl in layers. The skin was approximated with skin gerhard. Sterile dressings were applied followed by loose web roll and Gary bandage. The patient was transferred to a bed, and taken to recovery in stable and satisfactory condition. Stu ATWOOD assisted with this complex procedure.
[2022-04-28] MEDS ORDERED: LACTATED RINGERS 1,000 ML IV ONE (13:07)
[2022-04-28] MEDS ORDERED: ROPIVACAINE 0.2%-NS ON-Q PUMP 1,090 MG, EMPTY PAIN BALL 1 EACH MISCELLANE PRN (13:08)
--- NOTE | 2022-04-28 13:10 | P.ANPRN ---
Procedure Note - Anesthesia - Nerve Block Performed Right Adductor Canal Infusion Time Out Performed: Yes Date of Procedure: 04/28/22 Procedure Start Time: 10:29 Procedure Stop Time: 10:38 Location of Patient: PreOp Indication: Acute Post-Operative Pain, Requested by Surgeon Sedation Type: Sedate with meaningful contact maintained Preparation: Sterile Prep, Sterile Dressing Position: Supine Catheter: Indwelling Needle Types: Mateusz Needle Gauge: 18 Ultrasound used to visualize needle placement: Yes Ultrasound used to observe medication spread: Yes Injectate: 0.5% Ropivacaine (see comment for volume) (15 ml + decadron 4 mg) Blood Aspirated: No Pain Paresthesia on Injection Noted: No Resistance on Injection: Normal Image Stored and Saved: Yes Events: Uneventful and Well Tolerated Right iPack Single Date of Procedure: 04/28/22 Procedure Start Time: 10:40 Location of Patient: PreOp Indication: Acute Post-Operative Pain, Requested by Surgeon Sedation Type: Sedate with meaningful contact maintained Preparation: Sterile Prep, Sterile Dressing Position: Left Lateral Catheter: None Needle Types: On-Q Needle Gauge: 20 Ultrasound used to visualize needle placement: Yes Ultrasound used to observe medication spread: Yes Injectate: 0.5% Ropivacaine (see comment for volume) (15 ml + decadron 4 mg) Blood Aspirated: No Pain Paresthesia on Injection Noted: No Resistance on Injection: Normal Image Stored and Saved: Yes Events: Uneventful and Well Tolerated
--- NOTE | 2022-04-28 13:38 | XR ---
EXAMINATION TYPE: XR knee limited RT DATE OF EXAM: 04/28/2022 CLINICAL HISTORY: Right knee pain and arthritis status post total knee replacement. TECHNIQUE: Portable AP and crosstable lateral views of the right knee are obtained immediately posto peratively. COMPARISON: Outside right knee x-ray February 18, 2022 FINDINGS: Metallic hardware from total right knee arthroplasty is seen and appears satisfactory in a lignment and position. There is evidence of recent surgery with diffuse subcutaneous gas , vertical skin gerhard, and soft tissue swelling noted. IMPRESSION: METALLIC HARDWARE FROM TOTAL RIGHT KNEE ARTHROPLASTY IS SATISFACTORY IN ALIGNMENT.
[2022-04-28] MEDS: HYDROmorphone 0.5 MG/0.5 ML SYRINGE IVP PRN ×2 (15:28→15:33)
[2022-04-28] MEDS ORDERED: ACETAMINOPHEN TAB 325 MG TAB PO PRN (16:10)
[2022-04-28] MEDS ORDERED: FUROSEMIDE 20 MG TAB PO PRN (16:10)
[2022-04-28] MEDS: HYDROcodone/APAP 5-325MG 1 EACH TAB PO PRN (16:18)
[2022-04-28] MEDS: carvediloL 6.25 MG TAB PO SCH (17:58)
[2022-04-28] MEDS ORDERED: SENNOSIDES-DOCUSATE SODIUM 1 EACH TAB PO SCH (21:00)
[2022-04-28] MEDS: SACUBITRIL/VALSARTAN 24 MG-26 MG TABLET PO SCH (21:26)
[2022-04-28] MEDS: VIT A,C & E-LUTEIN-MINERALS 1 EACH TAB PO SCH (21:58)
[2022-04-28] MEDS: HYDROcodone/APAP 7.5-325MG 1 EACH TAB PO PRN (23:01)
[2022-04-29] MEDS ORDERED: ENOXAPARIN 30 MG/0.3 ML SYRINGE SQ SCH (06:00)
[2022-04-29] MEDS: carvediloL 6.25 MG TAB PO SCH (07:38)
[2022-04-29] MEDS: SACUBITRIL/VALSARTAN 24 MG-26 MG TABLET PO SCH (07:38)
[2022-04-29] MEDS: VIT A,C & E-LUTEIN-MINERALS 1 EACH TAB PO SCH (07:38)
[2022-04-29 07:40] VITALS: BP 157/83; PULSE 54; RESP 18; TEMP 98
[2022-04-29] MEDS: HYDROcodone/APAP 5-325MG 1 EACH TAB PO PRN (08:17)
--- NOTE | 2022-04-29 08:52 | P.PN ---
Progress Note - Text Progress Note Date: 04/29/22 Patient doing well. Pain controlled. Ambulating. Denies weakness or headache. Adductor canal catheter site clean and dry POD #1 s/p R TKA w/ OnQ adductor canal nerve block and iPACK nerve block - doing well
--- NOTE | 2022-04-29 08:54 | P.PN ---
Subjective Progress Note Date: 04/29/22 Principal diagnosis: Status post right total knee arthroplasty Patient is evaluated today at bedside, she was visualized up and ambulating with physical therapy. She is progressing very well she states. Her pain is well- controlled currently. She denies any headaches, lightheadedness, chest pain or shortness of breath. Objective - Vital Signs Vital signs: Vital Signs Temp 98.0 F 04/29/22 07:39 Pulse 54 L 04/29/22 07:39 Resp 18 04/29/22 07:39 BP 157/83 04/29/22 07:39 Pulse Ox 95 04/29/22 07:39 FiO2 Intake & Output 04/28/22 04/29/22 04/29/22 18:59 06:59 18:59 Intake Total 1590 Output Total 595 Balance 995 Weight 112.4 kg Intake: IV 1400 Intake, IV Titration 190 Amount Lactated Ringers 1,000 ml 140 @ 100 mls/hr IV .Q10H [facility] Rx#:[id number] ceFAZolin 2 gm In Sodium 50 Chloride 0.9% 50 ml @ 100 mls/hr IVPB Q8H [facility] Rx#: [id number] Output: Urine 550 Estimated Blood Loss 45 Other: Voiding Method Toilet # Voids 3 1 - Exam Right lower extremity: Incision is clean, dry, and intact. The foam dressing is in good condition. There is minimal soft tissue swelling and ecchymosis surrounding the medial and lateral aspects of the incision. Calf is soft, no tenderness with palpation. Plantar flexion, dorsiflexion, EHL, FHL are intact. Sensory exam to light touch throughout the extremity is intact, dorsal pedis pulses 2+. Assessment and Plan Assessment: Postoperative day #1 status post right total knee arthroplasty Plan: Pain control, plan for discharge home on [place] 7.5 mg/325 mg DVT prophylaxis, aspirin 325 mg daily for 2 weeks, then will transition to 161 mg daily for 2 weeks Wound care instructions were discussed, this to include when to remove On-Q ball, foam dressing icing and elevating, showering instructions Encourage incentive spirometer Medical recommendations Discharge planning: Plan for discharge today Time with Patient: Less than 30
--- NOTE | 2022-04-29 08:58 | P.DS ---
Providers Date of admission: 04/28/2022 Expected date of discharge: 04/29/22 Attending physician: Boris Patel Consults: 04/28/22 12:55 Consult Physician Routine Consulting Provider: Attila Willson Consult Reason/Comments: Medical management Do you want consulting provider notified?: Already Contacted Primary care physician: Kate Mor[facility] Course: Date of admission: 04/28/2022 Date of discharge: 04/29/2022 Admission diagnosis: Status post right total knee arthroplasty Discharge diagnosis: Same Attending physician: Dr. Patel Surgical procedures: Right total knee arthroplasty Brief history: Patient is a 71-year-old female with a history of progressive primary right knee osteoarthritis. At this point patient has failed conservative treatment measures and has opted to proceed with a elective right total knee arthroplasty. Hospital course: Details of patient's surgery can be found in operative report. Patient tolerated the procedure well and was subsequently transported to orthopedic floor. Patient's orthopeidc and medical care was provided daily. Patient had daily laboratory tests performed for evaluation of overall blood counts. Patient had daily physical therapy to include strengthening range of motion as well as education with walker ambulation. Patient was treated with Lovenox for their postoperative DVT prophylaxis during their inpatient stay. Patient was noted to have a relatively uneventful postoperative course. Patient reported satisfactory pain control with oral pain medications by postoperative day 0. Patient showed satisfactory progress with physical therapy. Patient moved steadily through the program and had no difficulty meeting the goals by postoperative day 1. Given patient's otherwise satisfactory course and having met physical therapy goals, plan is to discharge patient home on postoperative day 1. Discharge condition/disposition: Patient will be discharged home in stable condition. Discharge medications: Instructions are given on resumption of patient's normal daily medications per primary care recommendation, in addition patient will be prescribed [place] 7.5 mg/325 mg, Colace milligrams, aspirin 325 mg. Discharge instructions: 1. Wound care and infection precautions, keep incision dry and covered while showering, no lotions, creams, moisturizers. No soaking, tubs, pools, hottubs. Do not scrub over the incision. 2. Weight-bear as tolerated with walker / cane until follow-up. 3. Ice and elevate when necessary. Do not exceed 20 minutes per hour with ice pack. 4. Utilize compression sleeve until seen at first follow up appointment. 5. Visiting nursing care. 6. Home physical therapy including home CPM. 7. Pain meds and anticoagulants per prescription. 8. Pain medication has potential to cause constipation. Increase oral fluid and fiber intake. Contact primary care provider if you have not had a bowel movement within 48 hours after discharge 9. No anti-inflammatory medication until discussed at first post operative visit, this including Motrin, Aleve, Mobic, Diclofenac. 10. Follow up in office at 2 weeks postop with Stu Marques PA-C/Jigar Blackwell 11. Follow up with your primary care doctor 7-10 days after discharge. 12. Contact [facility] with any questions, . Procedures: Right total knee arthroplasty Patient Condition at Discharge: Good Plan - Discharge Summary Discharge Rx Participant: Yes New Discharge Prescriptions: New Aspirin 325 mg PO DAILY #30 tab Docusate [Colace] 100 mg PO DAILY #30 capsule HYDROcodone/APAP 7.5-325MG [[place] 7.5] 1 - 2 each PO Q6HR PRN #42 tab PRN Reason: Pain No Action Ergocalciferol [Vitamin D2 (DRISDOL)] 1.25 units PO FR carvediloL [Coreg] 6.25 mg PO BID #180 tablet Furosemide [Lasix] 20 mg PO DAILY PRN PRN Reason: Edema Acetaminophen [Tylenol Arthritis] 650 mg PO Q6H PRN PRN Reason: Pain Sacubitril/Valsartan [Entresto 24 mg-26 mg Tablet] 2 each PO BID Spironolactone [Aldactone] 25 mg PO DAILY Vit C/E/Zn/Coppr/Lutein/Zeaxan [Preservision Areds 2 Softgel] 1 each PO BID Discharge Medication List Ergocalciferol [Vitamin D2 (DRISDOL)] 1.25 units PO FR 08/11/16 [History] carvediloL [Coreg] 6.25 mg PO BID #180 tablet 09/26/21 [Rx] Acetaminophen [Tylenol Arthritis] 650 mg PO Q6H PRN 01/29/22 [History] Furosemide [Lasix] 20 mg PO DAILY PRN 01/29/22 [History] Sacubitril/Valsartan [Entresto 24 mg-26 mg Tablet] 2 each PO BID 01/29/22 [History] Spironolactone [Aldactone] 25 mg PO DAILY 01/29/22 [History] Vit C/E/Zn/Coppr/Lutein/Zeaxan [Preservision Areds 2 Softgel] 1 each PO BID 03/09 [History] Aspirin 325 mg PO DAILY #30 tab 04/29/22 [Rx] Docusate [Colace] 100 mg PO DAILY #30 capsule 04/29/22 [Rx] HYDROcodone/APAP 7.5-325MG [[place] 7.5] 1 - 2 each PO Q6HR PRN #42 tab 04/29/22 [Rx] Follow up Appointment(s)/Referral(s): Peter Marques PAC [PHYSICIAN MUSHROOM PRESS OPERATOR] - 2 Weeks Patient Instructions/Handouts: Knee Replacement (DC) Activity/Diet/Wound Care/Special Instructions: Orthopedic Discharge Instructions: 1. Wound care and infection precautions, keep incision dry and covered while showering, no lotions, creams, moisturizers. No soaking, pools, hot tubs. Do not scrub over incision. 2. Weight-bear as tolerated with walker / cane until follow-up. 3. Ice and elevate when necessary. Do not exceed 20 minutes per hour with ice pack. 4. Utilize compression sleeve until seen at first follow up appointment. 5. Pain meds and anticoagulants per prescription. 6. Pain medication has potential to cause constipation. Increase oral fluid and fiber intake. Contact primary care provider if you have not had a bowel movement within 48 hours after discharge. 7. No anti-inflammatory medication until discussed at first post operative visit, this including Motrin, Aleve, Mobic, Diclofenac 8. Follow up in office at 2 weeks postop with Stu Marques PA-C / Jigar Solitario PA-C 9. Follow up with your primary care doctor 7-10 days after discharge. 10. Contact [facility] with any questions, . Keep silver foam dressing on for 7 days. Silver foam dressing may be removed on 05/05/2022. While showering, cover dressing with Saran wrap. May shower directly over incision once silver foam dressing is removed Discharge Disposition: HOME WITH HOME HEALTH SERVICES
[2022-04-29] MEDS ORDERED: SPIRONOLACTONE 25 MG TAB PO SCH (09:00)
[2022-04-29 10:38] LABS: Basophils # (A) 0.02 X 10*3/uL (0.00-0.10); Basophils % (A) 0.1 %; Eosinophils # (A) 0 X 10*3/uL (0.04-0.35); Eosinophils % (A) 0 %; HCT 39.7 % (37.2-46.3); HGB 12.4 g/dL (12.0-15.0); Immature Grans, Automated 0.4 %; Lymphocytes # (A) 1.04 X 10*3/uL (0.90-5.00); Lymphocytes % (A) 7.6 %; MCH 28.8 pg (27.0-32.0); MCHC 31.2 g/dL (32.0-37.0); MCV 92.1 fL (80.0-97.0); Monocytes # (A) 0.82 X 10*3/uL (0.20-1.00); NRBC Per 100 WBC 0 /100 WBCS (0.0-0.0); Neutrophils # (A) 11.67 X 10*3/uL (1.80-7.70); Neutrophils % (A) 85.9 %; Platelet Count 148 X 10*3/uL (140-440); RBC 4.31 X 10*6/uL (4.10-5.20); RDW 13.5 % (11.5-14.5); WBC 13.61 X 10*3/uL (4.50-10.00)
[2022-04-29] MEDS: LACTATED RINGERS 1,000 ML IV SCH (11:14)
[2022-04-29] MEDS ORDERED: MULTIVITAMINS, THERA 1 EACH TAB PO SCH (12:00)
[2022-04-29 13:55] LABS: Glucose,Whole Blood 165 mg/dL (70-110)
[2022-04-29] MEDS: HYDROcodone/APAP 7.5-325MG 1 EACH TAB PO PRN (14:05)
[2022-05-02] MEDS ORDERED: ERGOCALCIFEROL 1,250 MCG (50,000 IU) CAPSULE PO SCH (09:00)
== END 2022-04-29 15:48 | disposition home health service (06) ==
LOC: OR 09:09 → 4SSUR 15:43 → OR 04-29 15:48
PROVIDERS: ATTEND Orthopaedic Surgery
DX: M17.11 Unilateral primary osteoarthritis, right knee (principal); Z95.0 Presence of cardiac pacemaker; I10 Essential (primary) hypertension; Z72.0 Tobacco use; I42.8 Other cardiomyopathies; I44.7 Left bundle-branch block, unspecified; Z79.899 Other long term (current) drug therapy; Z88.1 Allergy status to other antibiotic agents; Z88.2 Allergy status to sulfonamides
CPT/HCPCS: 97161; 64999; 64448; 76942; 85025; 88300; 73560; 27447; C1776; C1713 ×2; J2250; J1100; J0690 ×2; J2405; J1650; J1170

== ENCOUNTER → 2022-09-09 | Outpatient (CLI) | payer MEDICARE, OTHER | END | disposition home or self-care (01) | LOC: LABPAT 15:57 | PROVIDERS: ATTEND Orthopaedic Surgery | DX: Z01.812 Encounter for preprocedural laboratory examination (principal); M17.12 Unilateral primary osteoarthritis, left knee; Z22.322 Carrier or suspected carrier of Methicillin resistant Staphylococcus aureus | CPT/HCPCS: 87070 ==

== ENCOUNTER 2022-09-15 12:41 | Day surgery (SDC) | payer MEDICARE, OTHER ==
--- NOTE | 2022-09-14 22:37 | HP ---
HISTORY AND PHYSICAL DATE OF SCHEDULED SURGERY: 09/15/2022. HISTORY OF PRESENT ILLNESS: Kerri Nicholson is a 71-year-old patient seen with symptomatic left knee osteoarthritis. After having treatment options discussed, she elected to proceed with left total knee arthroplasty. Consent regarding the procedure was obtained. Cardiac clearance was provided by Dr. Amor, medical clearance by Dr. Kate Mora. PAST MEDICAL HISTORY: Hypertension, cardiovascular disease. PAST SURGICAL HISTORY: Breast biopsy. DAILY MEDICATIONS: 1. Hydrochlorothiazide. 2. Vitamins. ALLERGIES: Sulfa, iodine. SOCIAL HISTORY: She denies current tobacco use. PHYSICAL EVALUATION OF LEFT KNEE: Range of motion is -3/4 to 125. Tenderness along the medial joint line, crepitus medial compartment with range of motion. Pain with patellofemoral compression. Her ligaments are stable. Hip rotation is without pain. Distal neurovascular exam is intact. RADIOGRAPHS: Radiographs of the left knee reveal severe osteoarthritic changes. IMPRESSION: 1. Left knee osteoarthritis. 2. Hypertension. 3. Cardiovascular disease. PLAN: Left total knee arthroplasty. MMODL / IJN: [id number] /
[~2022-09-15 12:41] MED LIST changes: -DEXAMETHASONE SOD PHOSPHATE 4 MG/ML 1 ML VIAL IV ONE; -MIDAZOLAM 2 MG/2 ML VIAL IV PRN; -ONDANSETRON 4 MG/2 ML VIAL IVP ONE
[2022-09-15] MEDS ORDERED: HYDROmorphone 0.5 MG/0.5 ML SYRINGE IVP PRN ×3 (12:55→16:44)
[2022-09-15] MEDS ORDERED: LIDOCAINE 1% (10MG/ML) FOR IV START INTRADERMA PRN (12:55)
[2022-09-15] MEDS ORDERED: LACTATED RINGERS 1,000 ML IV SCH (12:55)
[2022-09-15] MEDS ORDERED: DEXAMETHASONE SOD PHOSPHATE 4 MG/ML 1 ML VIAL IV ONE (12:55)
[2022-09-15] MEDS ORDERED: ONDANSETRON 4 MG/2 ML VIAL IVP ONE (12:55)
[2022-09-15] MEDS ORDERED: MIDAZOLAM 2 MG/2 ML VIAL IVP ONE (13:47)
[2022-09-15] MEDS ORDERED: ROPIVACAINE 0.2%-NS ON-Q PUMP 1,090 MG, EMPTY PAIN BALL 1 EACH MISCELLANE PRN (14:15)
--- NOTE | 2022-09-15 14:19 | P.ANPRN ---
Procedure Note - Anesthesia - Nerve Block Performed Left Adductor Canal Time Out Performed: Yes (13:46) Date of Procedure: 09/15/22 Procedure Start Time: :46 Procedure Stop Time: 13:54 Location of Patient: PreOp Indication: Acute Post-Operative Pain, Requested by Surgeon (Dr Patel) Sedation Type: Sedate with meaningful contact maintained Preparation: Sterile Prep, Sterile Dressing Position: Supine Catheter: Indwelling Needle Types: Pajunk Needle Gauge: 21 Ultrasound used to visualize needle placement: Yes Ultrasound used to observe medication spread: Yes Injectate: 0.5% Ropivacaine (see comment for volume) (15cc) Blood Aspirated: No Pain Paresthesia on Injection Noted: No Resistance on Injection: Normal Image Stored and Saved: Yes Events: Uneventful and Well Tolerated
--- NOTE | 2022-09-15 14:22 | P.ANPRN ---
Procedure Note - Anesthesia - Nerve Block Performed Left iPack Time Out Performed: Yes Date of Procedure: 09/15/22 Procedure Start Time: 13:55 Procedure Stop Time: 14:01 Location of Patient: PreOp Indication: Acute Post-Operative Pain, Requested by Surgeon (Dr Patel) Sedation Type: Sedate with meaningful contact maintained Preparation: Sterile Prep Position: Supine Catheter: None Needle Types: Pajunk Needle Gauge: 21 Ultrasound used to visualize needle placement: Yes Ultrasound used to observe medication spread: Yes Injectate: 0.5% Ropivacaine (see comment for volume) (15cc +5cc PF Normal saline) Blood Aspirated: No Pain Paresthesia on Injection Noted: No Resistance on Injection: Normal Image Stored and Saved: Yes Events: Uneventful and Well Tolerated
[2022-09-15] MEDS ORDERED: SODIUM CHLORIDE 0.9% (PF) 10 ML VIAL ONE (14:50)
[2022-09-15] MEDS ORDERED: PROPOFOL 10 MG/ML 20 ML VIAL IV ONE (14:50)
[2022-09-15] MEDS ORDERED: ROPIVACAINE 5 MG/ML 30 ML VIAL ONE (14:50)
[2022-09-15] MEDS ORDERED: MIDAZOLAM 2 MG/2 ML VIAL ONE (14:50)
[2022-09-15] MEDS ORDERED: HYDROcodone/APAP 5-325MG 1 EACH TAB PO PRN (16:44)
[2022-09-15] MEDS ORDERED: NALOXONE 0.4 MG/ML 1 ML VIAL IV PRN (16:44)
--- NOTE | 2022-09-15 16:51 | P.OP ---
Date of Procedure: 09/15/22 Preoperative Diagnosis: Left knee osteoarthritis Postoperative Diagnosis: Left knee osteoarthritis Procedure(s) Performed: Left total knee arthroplasty Implants: 1. Depuy attune size 5 left cruciate retaining cemented femur 2. Depuy attune size 5 fixed bearing cemented tibial baseplate 3. Depuy attune size 5 cruciate retaining fixed bearing 10 mm polyethylene tibial insert 4. Depuy attune 38 mm all polyethylene cemented patella Anesthesia: regional (Adductor canal catheter, Ipack block), spinal Surgeon: Boris Patel [employer]: Peter Marques Estimated Blood Loss (ml): 50 Pathology: other (Bone) Condition: stable Disposition: PACU Indications for Procedure: 71-year-old patient seen with progressive left knee pain. After having treatment options discussed, she elected to proceed with total knee arthropl asty. Operative Findings: see description of procedure Description of Procedure: Patient was taken to the operative suite after having an adductor canal catheter placed by the department of anesthesia. Patient underwent a spinal anesthetic by the department of anesthesia. Patient was given preoperative IV intake antibiotics and TXA. A well-padded tourniquet was placed about the left lower extremity. The lower extremity was then prepped and draped in the normal sterile orthopedic fashion. The extremity was elevated, a tourniquet was insuf flated to 300. A standard anterior incision was made sharply through skin. Dissection was taken down through the subcutaneous soft tissues down to the extensor mechanism. A medial arthrotomy was performed, patella was everted and knee was flexed. There was advanced osteoarthritis noted. I introduced my distal intramedullary femoral drill. I then introduced the distal femoral cutting jig. Stu ATWOOD secured the cutting jig with 2 pins. I held retractors in position while Stu ATWOOD performed the distal femoral resection through the guide area we now removed her distal femoral cutting guide. We now placed our 4-in-1 femoral cutting block and positioned and it was secured with 2 pins by Stu ATWOOD while I held the block in position. The distal femoral finishing was now completed. A proximal tibial cutting guide was positioned. I held the guide in the appropriate position with both hands well Stu ATWOOD inserted stabilizing pins into the guide. Proximal tibial cut was made. We now placed a trial femoral component into position, along with an appropriate size tibial tray and insert. We now took the knee through range of motion and had full extension good flexion and good overall soft tissue balance noted. The patella was everted and stabilized with 2 towel clips held by Stu ATWOOD while I performed a flush with patellar quad tendon utilizing a fresh sawblade. We templated the patella, appropriate drill holes were made. An appropriate trial patella was positioned, knee was taken through full range of motion with the patella tracking very nicely. The trial patella was removed. Drill holes were made through the femoral component. All trial components were removed after marking off the appropriate rotation of the tibia. Retractors were now positioned along the proximal tibia. An appropriate keel punch was made with the appropriate size tibial guide by myself on Stu ATWOOD assisted by holding retractors. At this point appropriate size implants were chosen and opened. The joint was irrigated copiously with pulse lavage mechanical irrigation. The posterior capsule was infiltrated with local analgesic. The wound was irrigated with pulse lavage mechanical irrigation. We mixed antibiotic methylmethacrylate. We placed the knee into flexion. We placed multiple retractors assisted by Stu ATWOOD to expose the proximal tibia. Once the methyl methacrylate was ready, the tibial component was cemented into place removing any excess methylmethacrylate form by both myself and Stu ATWOOD. The femoral component was cemented into place removing the removing any excess methylmethacrylate performed by both myself and Stu ATWOOD. We then inserted the appropriate size polyethylene tibial insert. We made sure that it was locked into position. We took the knee into full extension, and then back in a flexion making sure we had removed any excess methylmethacrylate. The patellar component was then cemented down and secured with clamp. Excess methylmethacrylate removed. We kept the knee in full extension, patellar clamp in position until methylmethacrylate had hardened. Once it had hardened the patellar clamp was removed. The knee was taken through full range of motion. The patella tracked nicely. There was good soft tissue balancing. The tourniquet was now released. Additional hemostasis was achieved via electrocautery. A second gram of TXA was given. The wound again was irrigated with pulse lavage mechanical irrigation. The superficial soft tissues were infiltrated local analgesic. The extensor mechanism was repaired with Ethibond suture. We checked the repair with range of motion and it was stable. The subcutaneous soft tissues were repaired with Vicryl in layers. The skin was ap proximated with pernio/Dermabond. Sterile dressings were applied followed by loose web roll and Gary bandage. The patient was transferred to a bed, and taken to recovery in stable and satisfactory condition. Stu ATWOOD assisted with this complex procedure.
[2022-09-15] MEDS ORDERED: HYDROmorphone 0.5 MG/0.5 ML SYRINGE IVP ONE ×2 (17:09→17:30)
[2022-09-15] MEDS ORDERED: LACTATED RINGERS 1,000 ML IV ONE (17:54)
--- NOTE | 2022-09-15 18:08 | XR ---
EXAMINATION TYPE: XR knee limited LT DATE OF EXAM: 09/15/2022 5:24 PM INDICATION: Patient age:Female; 71 years old; Reason for study: Evaluation for Postop abnormality and alignment; COMPARISON: None. TECHNIQUE: The Left knee(s) was examined in Frontal, lateral projections. FINDINGS: Status post left total knee arthroplasty changes with hardware in appropriate alignment a nd intact. No evidence of fracture. Subcutaneous lucencies and lucencies within the joint consistent with surgical changes. IMPRESSION: Status post total knee arthroplasty changes with hardware intact and appropriate alignment. No fractu res identified.
[2022-09-15] MEDS ORDERED: FUROSEMIDE 20 MG TAB PO PRN (18:21)
[2022-09-15] MEDS ORDERED: ACETAMINOPHEN TAB 325 MG TAB PO PRN (18:21)
--- NOTE | 2022-09-15 18:42 | P.CONS ---
History of Present Illness - Reason for Consult Consult date: 09/15/22 - History of Present Illness Kerri Nicholson, is a 71-year-old female who was admitted to [facility] by Dr. Patel and underwent left total knee arthroplasty, consultation was requested for medical management while hospitalized. Past medical history is significant for hypertension with hypertensive heart disease, chronic systolic congestive heart failure, patient had a cardiac catheterization in September 2021 at that time she had no evidence of obstructive coronary artery disease but had evidence of severe cardiomyopathy consistent with nonischemic cardiomyopathy , underlying history of defibrillator placement January 2022, history of advanced osteoarthritis, positive COVID-19 testing on 08/28/2022, without any related symptoms at this time. On review of systems patient is alert and oriented 3 in no apparent distress there is no fever or chills no headache or dizziness no chest pain no shortness of breath no cough no nausea or vomiting no abdominal pain no diarrhea no blood in the stools no burning with urination no frequency or urgency and no hematuria Past Medical History Past Medical History: Cancer, Hypertension, Osteoarthritis (OA), Pneumonia, Skin Disorder Additional Past Medical History / Comment(s): hx. cellulitis legs, "irregular heart beat on EKG", hx bronchitis, loose stools for past 6 months, diverticuli tis, hx skin cancer History of Any Multi-Drug Resistant Organisms: None Reported Past Surgical History: Bladder Surgery, Breast Surgery Additional Past Surgical History / Comment(s): Colonoscopy, rt breast biopsy, urethral cyst removed, skin cancer removed from nose Past Anesthesia/Blood Transfusion Reactions: Family History of Problems w/ Anesthesia Additional Past Anesthesia/Blood Transfusion Reaction / Comm: mom gets severe PONV Past Psychological History: No Psychological Hx Reported Smoking Status: Former smoker Past Alcohol Use History: Occasional Additional Past Alcohol Use History / Comment(s): quit smoking 13 yrs. ago, smoked on & off 30 yrs., always a light smoker-more social smoker Past Drug Use History: None Reported - Past Family History Son(s) Family Medical History: Deep Vein Thrombosis (DVT), Pulmonary Embolus Additional Family Medical History / Comment(s): Blood clotting disorder Mother Family Medical History: COPD Sister(s) Family Medical History: Cancer Additional Family Medical History / Comment(s): ovarian Medications and Allergies Home Medications Medication Instructions Recorded Confirmed Type Ergocalciferol [Vitamin D2 1.25 units PO Q14D 10/24/16 11/28/22 History (DRISDOL)] carvediloL [Coreg] 6.25 mg PO BID #180 tablet 09/26/21 09/15/22 Rx Acetaminophen [Tylenol Arthritis] 650 mg PO Q6H PRN 01/29/22 09/15/22 History Furosemide [Lasix] 20 mg PO DAILY PRN 01/29/22 09/15/22 History Spironolactone [Aldactone] 25 mg PO QAM 01/29/22 09/15/22 History Sacubitril/Valsartan [Entresto 49 1 tab PO BID 09/08/22 09/15/22 History mg-51 mg Tablet] Allergies Allergy/AdvReac Type Severity Reaction Status Date / Time Sulfa (Sulfonamide Allergy Swelling Verified 09/15/22 13:07 Antibiotics) adhesive AdvReac Rash/Hives Verified 09/15/22 13:07 soap AdvReac Rash/Hives Verified 09/15/22 13:07 Physical Exam Vitals: Vital Signs Temp Pulse Resp BP Pulse Ox 09/15/22 17:45 50 L 16 102/58 98 09/15/22 17:30 54 L 16 136/55 96 09/15/22 17:15 52 L 16 112/55 95 09/15/22 17:03 97.0 F L 66 16 108/51 94 L 09/15/22 14:05 54 L 16 124/57 99 09/15/22 13:03 98.4 F 65 16 134/60 96 Intake and Output 09/15/22 09/15/22 09/15/22 06:59 14:59 22:59 Intake Total 800 50 Output Total 50 Balance 800 0 Intake: IV 800 50 Output: Estimated Blood Loss 50 Other: Weight 110.5 kg In general patient is alert and oriented x 3 in no distress HEENT head normocephalic and atraumatic Neck is supple no JVD no goiter no lymphadenopathy no carotid bruit Chest examination is clear to auscultation no crackles no wheezing Cardiac exam reveals regular heart sounds S1 and S2 no gallops no murmurs Abdomen is soft nontender no organomegaly with normal bowel sounds Extremity exam reveals no edema no cyanosis or clubbing Neurological examination reveals no gross focal deficits Assessment and Plan Plan: Osteoarthritis, status post left total knee arthroplasty today Pain management and DVT prophylaxis as per orthopedic protocol Underlying history of nonischemic cardiomyopathy Underlying history of hypertension with hypertensive heart disease Positive COVID-19 PCR on 08/28/2022, patient denies any symptoms at this time Patient was seen and examined Home medications reviewed and reordered Will check labs in a.m.
[2022-09-15] MEDS: HYDROcodone/APAP 7.5-325MG 1 EACH TAB PO PRN (18:54)
[2022-09-15] MEDS: SACUBITRIL/VALSARTAN 49 MG-51 MG TABLET PO SCH (20:41)
[2022-09-15] MEDS: carvediloL 6.25 MG TAB PO SCH (20:41)
[2022-09-15] MEDS ORDERED: SENNOSIDES-DOCUSATE SODIUM 1 EACH TAB PO SCH (21:00)
[2022-09-16] MEDS: HYDROcodone/APAP 7.5-325MG 1 EACH TAB PO PRN (05:23)
[2022-09-16] MEDS: carvediloL 6.25 MG TAB PO SCH (06:44)
--- NOTE | 2022-09-16 08:00 | P.PN ---
Progress Note - Text The patient is status post left adductor canal catheter placement. The catheter was placed for postoperative pain control, status post total knee arthroplasty. Ropivacaine 0.2% is infusing at 8 mLs per hour. The patient has no complaints of left lower extremity numbness or weakness. Patient's VAS score is 0-1 -10 at rest. 3-4-10 with movement. Assessment: Patient's adductor canal catheter is in place and working appropriately. Plan: continue infusion and adjust it as needed.
[2022-09-16 08:07] VITALS: BP 118/62; PULSE 59; RESP 16; TEMP 96.9
[2022-09-16] MEDS ORDERED: ENOXAPARIN 30 MG/0.3 ML SYRINGE SQ SCH (09:00)
[2022-09-16] MEDS ORDERED: SPIRONOLACTONE 25 MG TAB PO SCH (09:00)
--- NOTE | 2022-09-16 10:12 | P.DS ---
Providers Date of admission: 09/15/2022 Expected date of discharge: 09/16/22 Attending physician: Boris Patel Consults: 09/15/22 16:44 Consult Physician Routine Consulting Provider: Attila Willson Consult Reason/Comments: s/p left total knee arthroplasty Do you want consulting provider notified?: Yes Primary care physician: Kate Mora Hospital Course: Date of admission: 09/15/2022 Date of discharge: 09/16/2022 Admission diagnosis: Left knee osteoarthritis Discharge diagnosis: Same Attending physician: Dr. Patel Surgical procedures: Left total knee arthroplasty Brief history: Patient is a 71-year-old female with a history of progressive primary left knee osteoarthritis. At this point patient has failed conservative treatment measures and has opted to proceed with a elective left total knee arthroplasty. Hospital course: Details of patient's surgery can be found in operative report. Patient tolerated the procedure well and was subsequently transported to orthopedic floor. Patient's orthopeidc and medical care was provided daily. Patient had daily laboratory tests performed for evaluation of overall blood counts. Patient had daily physical therapy to include strengthening range of motion as well as education with walker ambulation. Patient was treated with Lovenox for their postoperative DVT prophylaxis during their inpatient stay. Patient was noted to have a relatively uneventful postoperative course. Patient reported satisfactory pain control with oral pain medications by postoperative day 1. Patient showed satisfactory progress with physical therapy. Patient moved steadily through the program and had no difficulty meeting the goals by postoperative day 1. Given patient's otherwise satisfactory course and having met physical therapy goals, plan is to discharge patient home with health services on postoperative day 1. Discharge condition/disposition: Patient will be discharged home with health services in stable condition. Discharge medications: Instructions are given on resumption of patient's normal daily medications per primary care recommendation, in addition patient will be prescribed Clarence; aspirin 81 mg twice a day 30 days; Colace. Discharge instructions: 1. Wound care and infection precautions, keep incision dry and covered while showering, no lotions, creams, moisturizers. No soaking, tubs, pools, hottubs. Do not scrub over the incision. 2. Weight-bear as tolerated with walker / cane until follow-up. 3. Ice and elevate when necessary. Do not exceed 20 minutes per hour with ice pack. 4. Utilize compression sleeve until seen at first follow up appointment. 5. Visiting nursing care. 6. Home physical therapy including home CPM. 7. Pain meds and anticoagulants per prescription. 8. Pain medication has potential to cause constipation. Increase oral fluid and fiber intake. Contact primary care provider if you have not had a bowel movement within 48 hours after discharge 9. No anti-inflammatory medication until discussed at first post operative visit, this including Motrin, Aleve, Mobic, Diclofenac. 10. Follow up in office at 2 weeks postop with Stu Marques PA-C / Jigar Solitario PA-C 11. Follow up with your primary care doctor 7-10 days after discharge. 12. Contact [facility] with any questions, . Assessment: Left knee osteoarthritis Procedures: Left total knee arthroplasty Patient Condition at Discharge: Good Plan - Discharge Summary Discharge Rx Participant: No New Discharge Prescriptions: New Aspirin [Adult Low Dose Aspirin EC] 81 mg PO BID #60 tab Docusate [Colace] 100 mg PO DAILY #30 capsule HYDROcodone/APAP 7.5-325MG [Clarence 7.5] 1 - 2 each PO Q6HR PRN #32 tab PRN Reason: Pain No Action Ergocalciferol [Vitamin D2 (DRISDOL)] 1.25 units PO Q14D carvediloL [Coreg] 6.25 mg PO BID #180 tablet Furosemide [Lasix] 20 mg PO DAILY PRN PRN Reason: Edema Acetaminophen [Tylenol Arthritis] 650 mg PO Q6H PRN PRN Reason: Pain Spironolactone [Aldactone] 25 mg PO QAM Sacubitril/Valsartan [Entresto 49 mg-51 mg Tablet] 1 tab PO BID Discharge Medication List Ergocalciferol [Vitamin D2 (DRISDOL)] 1.25 units PO Q14D 08/11/16 [History] carvediloL [Coreg] 6.25 mg PO BID #180 tablet 09/26/21 [Rx] Acetaminophen [Tylenol Arthritis] 650 mg PO Q6H PRN 01/29/22 [History] Furosemide [Lasix] 20 mg PO DAILY PRN 01/29/22 [History] Spironolactone [Aldactone] 25 mg PO QAM 01/29/22 [History] Sacubitril/Valsartan [Entresto 49 mg-51 mg Tablet] 1 tab PO BID 09/08/22 [History] Aspirin [Adult Low Dose Aspirin EC] 81 mg PO BID #60 tab 09/16/22 [Rx] Docusate [Colace] 100 mg PO DAILY #30 capsule 09/16/22 [Rx] HYDROcodone/APAP 7.5-325MG [Clarence 7.5] 1 - 2 each PO Q6HR PRN #32 tab 09/16/22 [Rx] Follow up Appointment(s)/Referral(s): [facility] [NON-STAFF] - Peter Marques PAC [PHYSICIAN MANAGER BUSINESS INFORMATION] - 2 Weeks Patient Instructions/Handouts: Knee Replacement (DC) Activity/Diet/Wound Care/Special Instructions: Orthopedic Discharge Instructions: 1. Wound care and infection precautions, keep incision dry and covered while showering, no lotions, creams, moisturizers. No soaking, pools, hot tubs. Do not scrub over incision. 2. Weight-bear as tolerated with walker / cane until follow-up. 3. Ice and elevate when necessary. Do not exceed 20 minutes per hour with ice pack. 4. Utilize compression sleeve until seen at first follow up appointment. 5. Pain meds and anticoagulants per prescription. 6. Pain medication has potential to cause constipation. Increase oral fluid and fiber intake. Contact primary care provider if you have not had a bowel movement within 48 hours after discharge. 7. No anti-inflammatory medication until discussed at first post operative visit, this including Motrin, Aleve, Mobic, Diclofenac. 8. Follow up in office at 2 weeks postop with Stu Marques PA-C / Jigar Solitario PA-C 9. Follow up with your primary care doctor 7-10 days after discharge. 10. Contact [facility] with any questions, . Keep incision clean, dry, intact. While showering, cover silver foam dressing with Saran wrap. Silver foam dressing may be removed on 09/22/2022. Discharge Disposition: HOME WITH HOME HEALTH SERVICES
--- NOTE | 2022-09-16 10:19 | P.PN ---
Subjective Progress Note Date: 09/16/22 Principal diagnosis: Left knee osteoarthritis Patient was seen at bedside this morning lying semirecumbent in bed. Patient says she did do well physical therapy earlier this morning and was able to walk on the hallway and up and down steps. Patient says she does have help at home. Patient says she does have a walker for home. Patient says she has not had bowel movement yet, however, patient says she has been passing gas. Patient says she has urinated since surgery yesterday. Patient says she does have some pain knee and says it is mostly at the backside of the knee. Patient denies radiation of pain. Patient denies chest pain, fever, shortness breath, nausea, vomiting, change in vision, loss of bowel/bladder control. Objective - Vital Signs Vital signs: Vital Signs Temp 96.9 F L 09/16/22 08:00 Pulse 59 L 09/16/22 08:00 Resp 16 09/16/22 08:00 BP 118/62 09/16/22 08:00 Pulse Ox 96 09/16/22 08:00 FiO2 Intake & Output 09/15/22 09/16/22 09/16/22 18:59 06:59 18:59 Intake Total 950 Output Total 50 2000 Balance 900 -2000 Weight 110.5 kg Intake: IV 950 Output: Urine 2000 Estimated Blood Loss 50 Other: # Bowel Movements 1 - Exam Left knee: Incision is clean, dry, and intact. The silver foam dressing is in good condition. There is minimal soft tissue swelling and ecchymosis surrounding the medial and lateral aspects of the incision. Calf is soft, no tenderness with palpation. Plantar flexion, dorsiflexion, EHL, FHL are intact. Sensory exam to light touch throughout the extremity is intact, dorsal pedis pulses 2+. Assessment and Plan Assessment: Left knee osteoarthritis - Postoperative day #1 status post left total knee arthroplasty Plan: 1. Left knee osteoarthritis - patient stable at bedside this morning. Patient did work with physical therapy earlier this morning. Discharge home with health services today. 2. Appreciate medical management 3. Pain management - [place]; Dilaudid 4. DVT prophylaxis - Lovenox in hospital; aspirin 81 mg twice a day 30 days on ce home 5. GI prophylaxis- senna; Colace 6. PT/OT - weightbearing as tolerated with walker 7. Encourage incentive spirometer use 8. Discharge planning - home with health services today Time with Patient: Less than 30
[2022-09-16 10:27] LABS: Basophils # (A) 0.02 X 10*3/uL (0.00-0.10); Basophils % (A) 0.2 %; Eosinophils # (A) 0.02 X 10*3/uL (0.04-0.35); Eosinophils % (A) 0.2 %; HCT 36.3 % (37.2-46.3); HGB 11.8 g/dL (12.0-15.0); Immature Grans, Automated 0.3 %; Lymphocytes # (A) 0.96 X 10*3/uL (0.90-5.00); MCH 28.4 pg (27.0-32.0); MCHC 32.5 g/dL (32.0-37.0); MCV 87.5 fL (80.0-97.0); Mean Platelet Volume 10.8 fL (9.5-12.2); Monocytes # (A) 0.63 X 10*3/uL (0.20-1.00); Monocytes % (A) 7.2 %; NRBC Per 100 WBC 0 /100 WBCS (0.0-0.0); Neutrophils % (A) 81.1 %; Platelet Count 128 X 10*3/uL (140-440); RBC 4.15 X 10*6/uL (4.10-5.20); RDW 13.7 % (11.5-14.5); WBC 8.76 X 10*3/uL (4.50-10.00)
[2022-09-16] MEDS: SACUBITRIL/VALSARTAN 49 MG-51 MG TABLET PO SCH (10:41)
--- NOTE | 2022-09-16 13:23 | P.PN ---
Subjective Progress Note Date: 09/16/22 Kerri Nicholson, is a 71-year-old female who was admitted to [facility] by Dr. Patel and underwent left total knee arthroplasty, consultation was requested for medical management while hospitalized. Past medical history is significant for hypertension with hypertensive heart disease, chronic systolic congestive heart failure, patient had a cardiac catheterization in September 2021 at that time she had no evidence of obstructive coronary artery disease but had evidence of severe cardiomyopathy consistent with nonischemic cardiomyopathy , underlying history of defibrillator placement January 2022, history of advanced osteoarthritis, positive COVID-19 testing on 08/28/2022, without any related symptoms at this time. On review of systems patient is alert and oriented 3 in no apparent distress there is no fever or chills no headache or dizziness no chest pain no shortness of breath no cough no nausea or vomiting no abdominal pain no diarrhea no blood in the stools no burning with urination no frequency or urgency and no hematuria On 09/16/2022 patient was seen and examined on the medical floor she is alert and oriented 3 in no apparent distress there is no fever or chills no headache or dizziness no chest pain no shortness of breath no cough no nausea or vomiting no abdominal pain no diarrhea and no urinary symptoms, patient is cleared from medical standpoint for discharge to home today Objective - Vital Signs Vital signs: Vital Signs Temp 98.0 F 09/16/22 01:45 Pulse 68 09/16/22 01:45 Resp 17 09/16/22 01:45 BP 107/63 09/16/22 01:45 Pulse Ox 95 09/16/22 01:45 FiO2 Intake & Output 09/15/22 09/16/22 09/16/22 18:59 06:59 18:59 Intake Total 950 Output Total 50 1999 Balance 900 -2000 Weight 110.5 kg Intake: IV 950 Output: Urine 1999 Estimated Blood Loss 50 Other: # Bowel Movements 1 - Exam In general patient is alert and oriented x 3 in no distress HEENT head normocephalic and atraumatic Neck is supple no JVD no goiter no lymphadenopathy no carotid bruit Chest examination is clear to auscultation no crackles no wheezing Cardiac exam reveals regular heart sounds S1 and S2 no gallops no murmurs Abdomen is soft nontender no organomegaly with normal bowel sounds Extremity exam reveals no edema no cyanosis or clubbing Neurological examination reveals no gross focal deficits - Labs CBC & Chem 7: 09/16/22 07:09 Assessment and Plan Plan: Osteoarthritis, status post left total knee arthroplasty today Pain management and DVT prophylaxis as per orthopedic protocol Underlying history of nonischemic cardiomyopathy Underlying history of hypertension with hypertensive heart disease Positive COVID-19 PCR on 08/28/2022, patient denies any symptoms at this time Patient was seen and examined Home medications reviewed and reordered Will check labs in a.m.
[2022-09-19] MEDS ORDERED: ERGOCALCIFEROL 1,250 MCG (50,000 IU) CAPSULE PO SCH (09:00)
== END 2022-09-16 14:36 | disposition home health service (06) ==
LOC: OR 12:41 → 4SSUR 16:39 → OR 09-16 14:36
PROVIDERS: ATTEND Orthopaedic Surgery
DX: M17.12 Unilateral primary osteoarthritis, left knee (principal); G89.18 Other acute postprocedural pain; I42.8 Other cardiomyopathies; I11.0 Hypertensive heart disease with heart failure; I50.22 Chronic systolic (congestive) heart failure; Z86.16 Personal history of COVID-19; Z88.2 Allergy status to sulfonamides; Z88.8 Allergy status to other drugs, medicaments and biological substances; Z95.810 Presence of automatic (implantable) cardiac defibrillator
CPT/HCPCS: 97161; 64999; 64448; 76942; 85025; 73560; 27447; C1776; C1713 ×2; C1751; J2250; J1100; J0690 ×2; J2405; J1650; J1170; 88300

== ENCOUNTER → 2022-10-23 | Outpatient (CLI) | payer MEDICARE, OTHER ==
--- NOTE | 2022-10-24 09:10 | MM ---
Reason for Exam: Screening (asymptomatic). Last screening mammogram was performed 12 month(s) ago. Patient History: Menarche at age 13. First Full-Term at age 20. Postmenopausal. Other cancer, age 69. Benign Excisional Biopsy on the right side. Sister had ovarian cancer. Risk Values: Mary 5 year model risk: 1.8%. NCI Lifetime model risk: 5.1%. Prior Study Comparison: 11/26/2017 Bilateral Screening Mammogram, [facility]. 05/25/2019 Bilateral Screening Mammogram, [facility]. 10/22/2021 Bilateral Screening Mammogram, [facility]. Tissue Density: There are scattered fibroglandular densities. Findings: Analyzed By CAD. Pacemaker overlies left chest. No suspicious groups of microcalcifications, spiculated or lobular masses, architectural distortion or other secondary signs of malignancy are mammographically apparent. Overall Assessment: Benign, BI-RAD 2 Management: Screening Mammogram of both breasts in 1 year. A negative mammogram report should not preclude additional follow up of suspicious palpable abnormalities. Patient should continue monthly self breast exam. A clinical breast exam by your physician is recommended on an annual basis and results should be correlated with mammographic findings. Electronically signed and approved by: David Davis D.O. Radiologis
== END | disposition home or self-care (01) ==
LOC: RADMAMWWP 11:17
PROVIDERS: ATTEND Family Medicine
DX: Z12.31 Encounter for screening mammogram for malignant neoplasm of breast (principal); Z78.0 Asymptomatic menopausal state; Z98.890 Other specified postprocedural states
CPT/HCPCS: 77063; 77067

== ENCOUNTER → 2023-11-11 | Outpatient (CLI) | payer MEDICARE, OTHER ==
[2023-11-11 16:19] LABS: NT-Pro-B-Type Natriuretic Pept 338 pg/mL
[2023-11-11 18:15] LABS: ALT 11 U/L (8-44); AST 14 U/L (13-35); Albumin 4.4 g/dL (3.8-4.9); Albumin/Globulin Ratio 1.83 Ratio (1.60-3.17); Alkaline Phosphatase 79 U/L (41-126); Calcium 9.5 mg/dL (8.7-10.3); Carbon Dioxide 24.3 mmol/L (21.6-31.8); Chloride 105 mmol/L (96-109); Globulin 2.4 g/dL (1.6-3.3); Glucose 92 mg/dL (70-110); Potassium 4.3 mmol/L (3.5-5.5); Sodium 143 mmol/L (135-145); Total Protein 6.8 g/dL (6.2-8.2)
== END | disposition home or self-care (01) ==
LOC: LABWHC1 14:29
PROVIDERS: ATTEND Nurse Practitioner Adult Health
DX: I42.8 Other cardiomyopathies (principal)
CPT/HCPCS: 36415; 80053; 83880

== ENCOUNTER → 2023-11-17 | Outpatient (CLI) | payer MEDICARE, OTHER ==
--- NOTE | 2023-11-18 08:15 | MM ---
Reason for Exam: Screening (asymptomatic). Last screening mammogram was performed 12 month(s) ago. Patient History: Menarche at age 13. First Full-Term at age 20. Postmenopausal. Patient has history of breast feeding. Other cancer, age 69. Benign Excisional Biopsy on the right side. Sister had ovarian cancer. Risk Values: Mary 5 year model risk: 1.9%. NCI Lifetime model risk: 4.6%. Prior Study Comparison: 05/25/2019 Bilateral Screening Mammogram, [facility]. 10/22/2021 Bilateral Screening Mammogram, [facility]. 10/23/2022 Bilateral MG 3D screening mammo w/cad, [facility]. Tissue Density: There are scattered fibroglandular densities. Findings: Analyzed By CAD. There is no suspicious group of microcalcifications or new suspicious mass in either breast. Overall Assessment: Benign, BI-RAD 2 Management: Screening Mammogram of both breasts in 1 year. . Patient should continue monthly self-breast exams. A clinical breast exam by your physician is recommended on an annual basis. This exam should not preclude additional follow-up of suspicious palpable abnormalities. Note on Mary scores and lifetime risk: 1. A Mary score greater than 3% is considered moderate risk. If this is the case, consider specialist referral to assess eligibility for a risk reducing agent. 2. If overall lifetime risk for the development of breast cancer is 20% or higher, the patient may qualify for future screening with alternating mammogram and breast MRI. Electronically signed and approved by: Robi Gould M.D. Radiologis
== END | disposition home or self-care (01) ==
LOC: RADMAMWWP 11:18
PROVIDERS: ATTEND Family Medicine
DX: Z12.31 Encounter for screening mammogram for malignant neoplasm of breast (principal); Z78.0 Asymptomatic menopausal state
CPT/HCPCS: 77063; 77067

== ENCOUNTER 2024-08-03 10:33 | Emergency (ER) | payer MEDICARE ==
[2024-08-03 10:50] VITALS: TEMP 98
--- NOTE | 2024-08-03 11:54 | ED ---
Fall HPI - General Chief Complaint: Fall Stated Complaint: Fall, neck pain Time Seen by Provider: 08/03/24 10:58 Source: patient, RN notes reviewed Mode of arrival: ambulatory Limitations: no limitations - History of Present Illness Initial Comments: This is a 73-year-old female who presents to the emergency department for a fall. States that around 9 AM she tripped and fell and face planted into a wall. Denies any loss of consciousness. She is on Xarelto for cardiac issues. Currently complaining of pain to her face and neck. She did also injure her right knee. MD Complaint: fall - Related Data Home Medications Medication Instructions Recorded Confirmed Ergocalciferol [Vitamin D2 1.25 units PO Q14D 08/11/16 09/15/22 (DRISDOL)] Acetaminophen [Tylenol Arthritis] 650 mg PO Q6H PRN 01/29/22 09/15/22 Furosemide [Lasix] 20 mg PO DAILY PRN 01/29/22 09/15/22 Spironolactone [Aldactone] 25 mg PO QAM 01/29/22 09/15/22 Sacubitril/Valsartan [Entresto 49 1 tab PO BID 09/08/22 09/15/22 mg-51 mg Tablet] Previous Rx's Medication Instructions Recorded carvediloL [Coreg] 6.25 mg PO BID #180 tablet 09/26/21 Aspirin [Adult Low Dose Aspirin EC] 81 mg PO BID #60 tab 09/16/22 Docusate [Colace] 100 mg PO DAILY #30 capsule 09/16/22 HYDROcodone/APAP 7.5-325MG [Lyons 1 - 2 each PO Q6HR PRN #32 tab 09/16/22 7.5] Allergies Allergy/AdvReac Type Severity Reaction Status Date / Time Sulfa (Sulfonamide Allergy Swelling Verified 08/03/24 10:50 Antibiotics) adhesive AdvReac Rash/Hives Verified 08/03/24 10:50 soap AdvReac Rash/Hives Verified 08/03/24 10:50 Review of Systems ROS Statement: Those systems with pertinent positive or pertinent negative responses have been documented in the HPI. ROS Other: All systems not noted in ROS Statement are negative. Past Medical History Past Medical History: Cancer, Hypertension, Osteoarthritis (OA), Pneumonia, Skin Disorder Additional Past Medical History / Comment(s): hx. cellulitis legs, "irregular heart beat on EKG", hx bronchitis, loose stools for past 6 months, diverticulitis, hx skin cancer History of Any Multi-Drug Resistant Organisms: None Reported Past Surgical History: Bladder Surgery, Breast Surgery Additional Past Surgical History / Comment(s): Colonoscopy, rt breast biopsy, urethral cyst removed, skin cancer removed from nose Past Anesthesia/Blood Transfusion Reactions: Family History of Problems w/ Anesthesia Additional Past Anesthesia/Blood Transfusion Reaction / Comment(s): mom gets severe PONV Past Psychological History: No Psychological Hx Reported Smoking Status: Former smoker Past Alcohol Use History: Occasional Past Drug Use History: None Reported - Past Family History Son(s) Family Medical History: Deep Vein Thrombosis (DVT), Pulmonary Embolus Additional Family Medical History / Comment(s): Blood clotting disorder Mother Family Medical History: COPD Sister(s) Family Medical History: Cancer Additional Family Medical History / Comment(s): ovarian General Exam Limitations: no limitations General appearance: alert, in no apparent distress Head exam: Present: other (Generalized bruising and superficial abrasions to the face) Eye exam: Present: normal appearance, PERRL, EOMI. Absent: scleral icterus, conjunctival injection, periorbital swelling Respiratory exam: Present: normal lung sounds bilaterally. Absent: respiratory distress, wheezes, rales, rhonchi, stridor Cardiovascular Exam: Present: regular rate, normal rhythm, normal heart sounds. Absent: systolic murmur, diastolic murmur, rubs, gallop, clicks Extremities exam: Present: other (Tenderness and ecchymosis over the right knee. Full range of motion. 2+ DP and PT pulses) Neurological exam: Present: alert, oriented X3, CN II-XII intact Psychiatric exam: Present: normal affect, normal mood Course Vital Signs 08/03/24 08/03/24 10:46 12:57 Temperature 98 F Pulse Rate 66 64 Respiratory 18 20 Rate Blood Pressure 167/79 165/82 O2 Sat by Pulse 96 97 Oximetry Medical Decision Making - Medical Decision Making This is a 73-year-old female who presents to the emergency department for a fall. Was pt. sent in by a medical professional or institution? @ -No Did you speak to anyone other than the patient for history? @ -No Did you review nursing and triage notes? @ -Yes, and I agree, it is accurate with regards to the patient's symptoms. Were old charts reviewed? @ -No Differential Diagnosis? @ -Differential Diagnosis Head Injury: Contusion, hematoma, intracranial hemorrhage, skull fracture, whiplash, concussion, this is not meant to be an all-inclusive list. EKG interpreted by me (3pts min.)? @ -Not obtained X-rays interpreted by me (1pt min.)? @ -Not obtained CT interpreted by me (1pt min.)? @ -Computed tomography scan of the brain and c-spine obtained. My interpretation identifies no evidence of an acute intracranial hemorrhage, skull fracture, or cervical spine fracture. CT scan of the facial bones obtained. My interpretation identifies no facial fractures. U/S interpreted by me (1pt. min.)? @ -Not obtained What testing was considered but not performed? (CT, X-rays, U/S, labs)? Why? @ -X-ray of the right knee, however patient declined as she did not think it was necessary. What meds were considered but not given? Why? @ -None Did you discuss the management of the patient with other professionals? @ -No Did you reconcile home meds? @ -No Was smoking cessation discussed for >3mins.? @ -No Was critical care preformed (if so, how long)? @ -No Were there social determinants of health that impacted care today? How? (Homelessness, low income, unemployed, alcoholism, drug addiction, transportation, low edu. Level, literacy, decrease access to med. care, snf, rehab)? @ -No Was there de-escalation of care discussed even if they declined? (Discuss DNR or withdrawal of care, Hospice)? @ -No What co-morbidities impacted this encounter? (DM, HTN, Smoking, COPD, CAD, Cancer, CVA, Hep., AIDS, mental health diagnosis, sleep apnea, morbid obesity)? @ -Osteoarthritis Was patient admitted / discharged? @ -Discharged. CT scan of the brain/C-spine and facial bones obtained demonstrating no acute intracranial process. She has right forehead scalp edema without evidence of fracture. No cervical spine fractures were identified either. There is a lucent C5 vertebral body lesion that may represent a hemangioma. This can be further worked up on an outpatient basis with her primary care provider. She declined any pain medication in the emergency department. I had also ordered an x-ray of the right knee, however she refused because she did not feel it was necessary. Patient discharged home in stable condition. Advised Tylenol as needed for pain relief. Case discussed with ED attending Dr. Yun. Return precautions reviewed in depth, the patient is instructed to return to the emergency department with any new, worsening, or concerning symptoms. Patient verbalized understanding. Undiagnosed new problem with uncertain prognosis? @ -None Drug Therapy requiring intensive monitoring for toxicity (Heparin, Nitro, Insulin, Cardizem)? @ -None Were any procedures done? @ -None Diagnosis/symptom? @ -Fall, head injury Acute, or Chronic, or Acute on Chronic? @ -Acute Uncomplicated (without systemic symptoms) or Complicated (systemic symptoms)? @ -Uncomplicated Side effects of treatment? @ -None Exacerbation, Progression, or Severe Exacerbation] @ -Not applicable Poses a threat to life or bodily function? @ -No - Radiology Data Radiology results: report reviewed, image reviewed Disposition Clinical Impression: Fall, Head injury Disposition: HOME SELF-CARE Instructions (If sedation given, give patient instructions): Fall Prevention for Older Adults (ED) Additional Instructions: Return to the emergency department with any new, worsening, or concerning symptoms. Follow up with your primary care provider in 1-2 days. Is patient prescribed a controlled substance at d/c from ED?: No Referrals: Kate Mora MD [Primary Care Provider] - 1-2 days Time of Disposition: 12:33
--- NOTE | 2024-08-03 12:12 | CT ---
EXAMINATION TYPE: CT brain cspine wo con, CT facial bones wo con CT DLP: 1211.5 mGycm, Automated exposure control for dose reduction was used. DATE OF EXAM: 08/03/2024 12:03 PM COMPARISON: None. CLINICAL INDICATION: Female, 73 years old with history of Fall, head injury; Fall, head injury TECHNIQUE: Brain: Multiple axial CT images of the brain were obtained without IV contrast. Cspine: Axial CT images from the skull base to the inferior aspect of T2 we obtained without intraven ous contrast. Coronal and sagittal reformatted images were also reviewed. Facial: Axial imaging of the facial structures with sagittal and coronal reformats. FINDINGS: Brain: Extra-axial spaces: No abnormal extra-axial fluid collections. Ventricular system: Dilatation in proportion to cerebral atrophy. Cerebral parenchyma: Cerebral atrophy. No acute intraparenchymal hemorrhage or mass effect. The stokes -white junction is well differentiated. Scattered hypoattenuating areas are seen within the white mat ter. Cerebellum: Unremarkable. Mass effect: No evidence of midline shift. Intracranial vasculature: unremarkable Soft tissues: Right forehead scalp with edema. Calvarium/osseous structures: No depressed skull fracture. Paranasal sinuses and mastoid air cells: Clear. Visualized orbits: Orbital contents are intact. Cervical spine: Fracture: None. Osseous structures: Multilevel degenerative disc disease changes with endplate spurring and disc oste ophyte complex's. Lucent area in the C5 vertebral body favored represent vertebral body hemangioma Vertebral alignment: Grade 1 anterolisthesis of C3 on C4. Spinal canal/Neural Foramina: No evidence of significant spinal canal narrowing. No evidence for sign ificant neural foraminal stenosis. Neck soft tissues: Prevertebral soft tissues are within normal limits. Other: The airway is patent. The lung apices are clear. Cardiac pacemaker leads partially visualized. Facial:There is no evidence of fracture, subluxation, dislocation, or significant soft tissue swellin g. The orbital contents are unremarkable.The temporal-mandibular joints appear symmetric. Moderate pa ranasal sinus mucosal thickening. IMPRESSION: 1. No acute intracranial process. 2. Right forehead scalp edema without evidence of fracture. 3. Nonspecific white matter changes, likely secondary to chronic small vessel ischemic disease. 4. No evidence of cervical spine fracture. 5. Mild multilevel degenerative disc disease. 6. Lucent C5 vertebral body lesion possibly representing vertebral body hemangioma correlate for his tory of malignancy. Consider MRI with contrast. 7. Grade 1 anterolisthesis of C3 on C4. [facility], , 08/03/2024 12:10 PM
[2024-08-03 13:00] VITALS: BP 165/82; PULSE 64; RESP 20
== END 2024-08-03 12:58 | disposition home or self-care (01) ==
LOC: EC 10:33
CPT/HCPCS: 70450; 70486; 72125; 99283

== ENCOUNTER → 2024-11-03 | Outpatient (CLI) | payer MEDICARE, OTHER ==
[2024-11-03 15:48] LABS: BUN/Creat Ratio 18.57 Ratio (12.00-20.00); Calcium 8.9 mg/dL (8.7-10.3); Carbon Dioxide 23.2 mmol/L (21.6-31.8); Chloride 110 mmol/L (96-109); Glucose 113 mg/dL (70-110); Potassium 4.3 mmol/L (3.5-5.5); Sodium 145 mmol/L (135-145)
[2024-11-03 15:52] LABS: NT-Pro-B-Type Natriuretic Pept 453 pg/mL (0-125)
== END | disposition home or self-care (01) ==
LOC: LABWHC1 11:09
PROVIDERS: ATTEND Nurse Practitioner Adult Health
DX: I42.8 Other cardiomyopathies (principal)
CPT/HCPCS: 36415; 80048; 83880

== ENCOUNTER → 2025-01-17 | Outpatient (CLI) | payer MEDICARE, OTHER ==
--- NOTE | 2025-01-17 08:02 | MM ---
Reason for Exam: Screening (asymptomatic). Last mammogram was performed 1 year(s) and 3 month(s) ago. Patient History: Menarche at age 13. First Full-Term at age 20. Postmenopausal. Patient has history of breast feeding. Benign Excisional Biopsy on the right side. Sister had ovarian cancer. Risk Values: Mary 5 year model risk: 1.9%. NCI Lifetime model risk: 4.3%. Prior Study Comparison: 10/22/2021 Bilateral Screening Mammogram, [facility]. 10/23/2022 Bilateral MG 3D screening mammo w/cad, [facility]. 11/17/2023 Bilateral MG 3D screening mammo w/cad, [facility]. Tissue Density: The breasts are almost entirely fatty. Findings: Analyzed By CAD. There is no suspicious group of microcalcifications or new suspicious mass in either breast. Overall Assessment: Benign, BI-RAD 2 Management: Screening Mammogram of both breasts in 1 year. . Patient should continue monthly self-breast exams. A clinical breast exam by your physician is recommended on an annual basis. This exam should not preclude additional follow-up of suspicious palpable abnormalities. Note on Mary scores and lifetime risk: 1. A Mary score greater than 3% is considered moderate risk. If this is the case, consider specialist referral to assess eligibility for a risk reducing agent. 2. If overall lifetime risk for the development of breast cancer is 20% or higher, the patient may qualify for future screening with alternating mammogram and breast MRI. [facility], , 01/17/2025 7:59 AM. Electronically signed and approved by: Robi Gould M.D. Radiologis
--- NOTE | 2025-01-17 11:50 | BD ---
EXAMINATION TYPE: Axial Bone Density DATE OF EXAM: 01/17/2025 CLINICAL HISTORY: 74 years old Female. ICD-10 CODE: Z78.0 ASYMPTOMATIC MENOPAUSAL STATE , Additional History: Height: 64 Weight: 239.7 FRAX RISK QUESTIONS: Alcohol (3 or more units per day): no Family History (Parent hip fracture): no Glucocorticoids (More than 3mos): no (Ex: prednisone, prednisolone, methylprednisolone, dexamethasone, and hydrocortisone). History of Fracture in Adulthood: no Secondary Osteoporosis: 1. Type 1 Diabetes: no 2. Hyperthyroidism: no 3. Menopause before 45: no 4. Malnutrition: no 5. Chronic liver disease: no Rheumatoid Arthritis: no Current Tobacco Use: no RISK FACTORS HISTORY OF: Hip Fracture (Right/Left): no Spine Fracture: no History of Wrist Fracture: no Surgery to Spine/Hip(right/left)/Wrist (right/left): no MEDICATIONS: Thyroid Medications: no Osteoporosis Medications: no EXAM MEASUREMENTS: Bone mineral densitometry was performed using the [employer] System. Bone mineral density as measured about the Lumbar spine is: ----- L1-L4(G/cm2): 1.291 T Score Values are as follows: ----- L1: 0.7 ----- L2: 0.4 ----- L3: 1.6 ----- L4: 0.6 ----- L1-L4: 0.9 Z Score Values are as follows: ----- L1: 1.2 ----- L2: 0.9 ----- L3: 2.2 ----- L4: 1.2 ----- L1-L4: 1.5 Bone mineral density has: decreased -4.8 % since study of: 11/07/2019 Bone mineral density about the R hip (g/cm2): 0.929 Bone mineral density about the L hip (g/cm2): 0.925 T Score values are as follows: -----R Neck: -1.5 -----L Neck: `-1.8 -----R Total: -0.6 -----L Total: -0.7 Z Score values are as follows: -----R Neck: -0.4 -----L Neck: -0.7 -----R Total: 0.2 -----L Total: 0.2 Bone mineral density has: decreased -8.3 % since study of: 11/07/2019 FRAX%s: The graph provided illustrates a 10.6% chance for a major osteoporotic fx and a 2.2% chance f or the hips probability for fx in 10 years time. IMPRESSION: Normal (Values between +1 and -1 indicate normal bone mass). Consider repeating this study in 5 year s or sooner if there is some new clinical indication. NOTE: T-SCORE=SD OF THE YOUNG ADULT MEAN. [facility], , 01/17/2025 11:48 AM
== END | disposition home or self-care (01) ==
LOC: RADMAMWWP 07:46
PROVIDERS: ATTEND Family Medicine
DX: Z12.31 Encounter for screening mammogram for malignant neoplasm of breast (principal); R92.313 Mammographic fatty tissue density, bilateral breasts; M85.89 Other specified disorders of bone density and structure, multiple sites; Z78.0 Asymptomatic menopausal state
CPT/HCPCS: 77063; 77067; 77080